=== PATIENT | female | born 1955 | race Caucasian/White ===

== ENCOUNTER 2025-07-16 07:32 | Outpatient (OUT) | payer MEDICARE, SELFPAY ==
--- OUTSIDE RECORDS SUMMARY | 2025-07-04 10:30 | XMS_ITS | Encounter Summary ---
Author Organization [facility] Address [address] [place] [address] Care Team Providers Care Radiologic Technologist Mammogram Name Role Phone Mercedez Savage GRADY Unavailable Adarsh Hernandez MD Unavailable [phone] Radha Perez LPN Unavailable Adarsh Hernandez MD Primary Care Provider [phone] Reason for Referral * Imaging (Routine) - Pending Review Specialty Diagnoses / Procedures Referred By Contac t Referred To Contact Radiology Diagnoses Benign essential hypertension Atherosclerosis of [place] coronary artery of [place] heart without angina pectoris Precordial chest pain Palpitation Peripheral edema Procedures Holter monitor Adarsh Hernandez MD [address] [address] Phone: tel: fax: [facility] [address] [place] [address] Phone: tel: fax: Referral ID Status Reason Start Date Expiration Date V isits Requested Visits Authorized [id number] Pending Review 07/04/2025 12/31/2025 1 1 * Imaging (Routine) - Pending Review Specialty Diagnoses / Procedures Referred By Contac t Referred To Contact Radiology Diagnoses Benign essential hypertension Atherosclerosis of [place] coronary artery of [place] heart without angina pectoris Precordial chest pain Palpitation Peripheral edema Procedures Echocardiogram 2D complete Adarsh Hernandez MD [address] [address] Phone: tel: fax: [facility] [address] [place] [address] Phone: tel: fax: Referral ID Status Reason Start Date Expiration Date Visits Requested Visits Authorized [id number] Pending Review Perform Procedure 07/04/2025 12/31/2025 1 1 Reason for Visit * Reason Comments Hypertension Hyperlipidemia Diabetes Encounter Details Date Type Department Care Team (Late st Contact Info) Description 07/04/2025 10:30 AM EDT Office Visit [facility] 112 [facility] [address] [place] [address] Adarsh Hernandez MD 112 [facility] [address] [place] [address] (Fax) Benign essential hypertension (Primary Dx); Mixed hyperlipidemia; Type 2 diabetes mellitus with other diabetic kidney complication (HCC); Type 2 diabetes mellitus with hyperglycemia, without long-term current use of insulin (HCC); Polypharmacy; Non morbid obesity due to excess calories; Atherosclerosis of [place] coronary artery of [place] heart without angina pectoris; Precordial chest pain; Palpitation; Peripheral edema; Cardiovascular event risk Social History Tobacco Use Types Packs/Day Years Used Date Smoking Tobacco: Former Cigarettes Smokeless Tobacco: Former Tobacco Cessation:Counseling Given: Yes Comments:Last smoked : >10 years ago Alcohol Use Standard Drinks/Week Comments Not Currently 0 (1 standard drink = 0.6 oz pur e alcohol) B1300 Health Literacy Answer Date Recor ded How often do you need to hav e someone help you when you read instructions, pamphlets, or other written material from your doctor or pharmacy? Rarely 06/27/2024 Humiliation, Afraid, Rape, and Kick questionnair e Answer Date Recorded Within the last year, have y ou been afraid of your partner or ex-partner? No 06/27/2024 Within the last year, have y ou been humiliated or emotionally abused in other ways by your partner or ex-partner? No Within the last year, have y ou been kicked, hit, slapped, or otherwise physically hurt by your partner or ex-partner? No 06/27/2024 Within the last year, have y ou been raped or forced to have any kind of sexual activity by your partner or ex-partner? No 06/27/2024 Social Connection and Isolation Panel Answer Date Recorded In a typical week, how many times do you talk on the phone with family, friends, or neighbors? More than three times a week 06/27/2024 How often do you get togethe r with friends or relatives? More than three times a week 06/27/2024 How often do you attend chur or caodaism services? More than 4 times per year 06/27/2024 Do you belong to any clubs o r organizations such as rastafarian groups, unions, fraternal or athletic groups, or school groups? Yes 06/27/2024 How often do you attend meet ings of the clubs or organizations you belong to? More than 4 times per year 06/27/2024 Are you , , di vorced, , never , or living with a partner? 06/27/2024 AUDIT-C Answer Date Recorded Q1: How often do you have a drink containing alcohol? Never 06/27/2024 Q2: How many drinks containi ng alcohol do you have on a typical day when you are drinking? Patient does not drink Q3: How often do you have si x or more drinks on one occasion? Never 06/27/2024 Overall Financial Resource Strain (CARDIA) Answe r Date Recorded How hard is it for you to pa y for the very basics like food, housing, medical care, and heating? Not hard at all 06/27/2024 PHQ-2 Answer Date Recorded Patient Health Questionnaire-2 Score 1 07/04/2025 [facility] [place] [facility] - Occupational Stress Questionnaire Answer Date Recorded Do you feel stress - tense, restless, nervous, or anxious, or unable to sleep at night because your mind is troubled all the time - these days? To some extent 06/27/2024 Exercise Vital Sign Answer Date Recorde d On average, how many days pe r week do you engage in moderate to strenuous exercise (like a brisk walk)? 3 days 06/27/2024 On average, how many minutes do you engage in exercise at this level? 20 min 06/27/2024 Hunger Vital Sign Answer Date Recorded Within the past 12 months, y ou worried that your food would run out before you got the money to buy more. Never true 06/27/20 24 Within the past 12 months, t he food you bought just didn't last and you didn't have money to get more. Never true 06/27/2024 PRAPARE - Transportation Answer Date Re corded In the past 12 months, has l ack of transportation kept you from medical appointments or from getting medications? No 06/04 In the past 12 months, has l ack of transportation kept you from meetings, work, or from getting things needed for daily living? No 06/27/2024 Housing Stability Vital Sign Answer Kiet e Recorded In the last 12 months, was t here a time when you were not able to pay the mortgage or rent on time? No 06/27/2023 In the last 12 months, how many places have you lived? 1 06/27/2023 In the last 12 months, was t here a time when you did not have a steady place to sleep or slept in a care home (including now)? No 06/27/2023 Housing Stability Vital Sign Answer Kiet e Recorded In the last 12 months, was t here a time when you were not able to pay the mortgage or rent on time? No 06/27/2024 In the past 12 months, how m any times have you moved where you were living? 0 06/27/2024 At any time in the past 12 m [facility], were you homeless or living in a care home (including now)? No 06/27/2024 Education Answer Date Recorded What is the highest level of school you have completed or the highest degree you have received? High school graduate 05/16/2023 Comments No Sex and Gender Information Value Date Recorded Sex Assigned at Not on file Legal Sex Female 7:07 PM EDT Gender Identity Not on file Sexual Orientation Not on file Occupation Industry Job Start Date Job End Date Retired Not on file Not on file Not on file Retired Not on file Not on file Not on file documented as of this encounter Last Filed Vital Signs Vital Sign Reading Time Taken Comments Blood Pressure 128/78 07/04/2025 10:33 AM EDT Pulse 87 07/04/2025 10:33 AM EDT Temperature - - Respiratory Rate - - Oxygen Saturation 94% 07/04/2025 10:33 AM EDT Inhaled Oxygen Concentration - - Weight 85.3 kg (188 lb) 07/04/2025 10:33 AM EDT Height 165.1 cm (5' 5 ) 07/04/2025 10:33 AM EDT Body Mass Index 31.28 07/04/2025 10:33 AM EDT documented in this encounter Functional Status * Over the past 2 weeks, how often have you been bothered by any of the following problems? Question Answer Date of Assessment Author Little interest or pleasure in doing things Not at all 07/04/2025 10:29 AM EDT Sita January, M A Feeling down, depressed, or hopeless Several days 07/04/2025 10:29 AM EDT Sita January, M A Patient Health Questionnaire -2 Score 1 07/04/2025 10:29 AM EDT Sita January, M A documented as of this encounter Progress Notes * Adarsh Hernandez MD - 07/04/2025 10:30 AM EDT Images from the original note were not included. Patient ID: Gin Contreras is a 69 y.o. female who presents for: Hypertension Patient is here for follow-up of elevated blood pressure. She is exercising and is adherent to a low-salt diet. Blood pressure is well controlled at home. Cardiac symptoms: chest pain and FINCH, Lightheadedness. Patient denies dyspnea, But admits to developing intermittent palpitations. When he has palpitations occur she does get precordial chest pain / pressure. These have not sustain themselves.. Cardiovascular risk factors: advanced age (older than 55 for men, 65 for women), diabetes mellitus, dyslipidemia, hypertension, microalbuminuria, obesity (BMI >= 30 kg/m2), and sedentary lifestyle.Use of agents associated with hypertension: thyroid hormones. History of target organ damage: chronic kidney disease. Hyperlipidemia Pt who presents for follow-up of dyslipidemia. A repeat fasting lipid profile was done. The patientdoes not use medications that may worsen dyslipidemias (corticosteroids, progestins, anabolic steroids, diuretics, amiodarone, cyclosporine, olanzapine). She does use beta-blockers Exercise: three times a week. Diabetes Mellitus Patient presents for follow up of diabetes. Current symptoms include: none. Symptoms have stabilized. Patient denies increased appetite, paresthesia of the feet, polydipsia, polyuria, and visual disturbances. Evaluation to date has included: fasting blood sugar, fasting lipid panel, hemoglobin A1C,and microalbuminuria. Review of Systems Constitutional: Negative for activity change and fatigue. Respiratory: Negative for cough, shortness of breath and wheezing. Cardiovascular: Positive for chest pain and palpitations. Negative for leg swelling. Neurological: Positive for light-headedness and headaches. Objective The patient is pleasant and in no acute distress. The neck is supple and trachea is midline. No masses are appreciated. The heart is iregular rate and rhythm, currently appears to be trigeminy, without S3, S4. No murmur. The patient has normal respiratory pattern. The breath sounds are Diffusely decreased but symmetrical without evidence of rhonchi or rales. No wheezing. The skin is warm and dry. The lower extremities have trace edema. The patient has good eye contact and speech is clear. Appropriate affect. 07/04/2025 10:33 AM 05/14/2025 9:56 AM 05/14/2025 9:30 AM 04/04/2025 10:25 AM Vitals BMI 31.28 kg/m2 31.28 kg/m2 BSA (m2) 1.98 m2 1.98 m2 Systolic 128 120 Diastolic 78 68 Heart Rate 87 110 107 71 SpO2 94 % 98 % 93 % 95 % Height (in) 5' 5 5' 5 Weight (lb) 188 188 Visit Report Report Report Report Report Allergies Allergen Reactions Codeine Hives and Itching Other Reaction(s): red bumps, itching Pioglitazone Nausea Only Other Reaction(s): Nausea Oxycodone Rash Other Reaction(s): Rash Current Outpatient Medications on File Prior to Visit Medication Sig Dispense Refill albuterol (2.5 MG/3ML) 0.083% nebulizer solution Take 3 mL (2.5 mg) by nebulization every 6 (six) hours if needed for shortness of breath or wheezing 300 mL 0 ASPIRIN 81 PO Take 1 tablet by mouth in the morning. uphsyqwdum-kdpepqlvsnyxl-opaamkfr 50-325-40 MG tablet Take 1 tablet by mouth every 4 (four) hours if needed for migraine Use no more than 4/day 10 tablet 0 cholecalciferol (Vitamin D-3) 125 MCG (5000 UT) tablet Take 5,000 Units by mouth Daily clobetasol (Temovate) 0.05 % external solution Apply topically in the morning and before bedtime. 50 mL 0 Continuous Blood Gluc Poured Pipe Maker (FreeStyle Rory 2 [place]) device Continuous Glucose Sensor (FreeStyle Rory 2 Sensor) [facility] 1 each on the skin every 14 (fourteen) days USE DIRECTED to test BLOOD SUGAR; change EVERY 2 (TWO) weeks 6 each 3 DULoxetine (Cymbalta) [address] capsule Take 1 capsule (30 mg) by mouth Daily for 7 days Do not crush or chew. 7 capsule 0 gabapentin (Neurontin) 100 MG capsule Titrate from 1 to 4 capsules three times daily as needed for pain 100 capsule 0 levothyroxine (Synthroid, Levoxyl) 75 MCG tablet Take 0.5 tablets (37.5 mcg) by mouth in the morning and 0.5 tablets (37.5 mcg) in the evening. Take before meals. 90 tablet 1 liothyronine (Cytomel) 5 MCG tablet Take 1.5 tablet in AM and 1.5 tablet in PM on an empty stomach.NICKY; Sigma or Greenstone brands only (Patient taking differently: Take 1.5 tablet in AM and 1 tablet in PM on an empty stomach. NICKY; Sigma or Greenstone brands only) 270 tablet 1 Multiple Vitamins-Minerals (Multivitamin Adults 50+) tablet Take 1 tablet by mouth Daily Nebulizers (Compressor/Nebulizer) mis Use 4 times per day and PRN SOB/wheezing 1 each 0 omeprazole (PriLOSEC) [address] capsule Take 1 capsule (20 mg) by mouth in the morning. Take before meals. 90 capsule 1 [DISCONTINUED] atorvastatin (Lipitor) 40 MG tablet Take 1 tablet (40 mg) by mouth at bedtime 90 tablet 0 [DISCONTINUED] dapagliflozin (Farxiga) 10 MG Take 1 tablet (10 mg) by mouth Daily 90 tablet 0 [DISCONTINUED] DULoxetine (Cymbalta) [address] capsule Take 1 capsule (30 mg) by mouth Daily Do not crush or chew. 90 capsule 1 [DISCONTINUED] glipiZIDE (Glucotrol) 10 MG tablet Take 1.5 tablet in AM and 0.5 in PM 180 tablet 0 [DISCONTINUED] losartan (Cozaar) 100 MG tablet Take 1 tablet (100 mg) by mouth 1 (one) time each day at the same time 90 tablet 0 [DISCONTINUED] metFORMIN (Glucophage) 1000 MG tablet Take 1 tablet (1,000 mg) by mouth in the morning and 1 tablet (1,000 mg) in the evening. Take with meals. 180 tablet 0 [DISCONTINUED] metoprolol succinate XL (Toprol-XL) 25 MG 24 hr tablet Take 1 tablet (25 mg) by mouth Daily 90 tablet 0 spironolactone (Aldactone) 25 MG tablet Take 1 tablet (25 mg) by mouth Daily (Patient not taking: Reported on 07/04/2025) 30 tablet 0 [DISCONTINUED] furosemide (Lasix) 20 MG tablet Take 1 tablet (20 mg) by mouth Daily for 7 days 7 tablet 0 [DISCONTINUED] predniSONE (Deltasone) 10 MG tablet Every 2 day tapering dose; 5,5,4,4,3,3,2,2,1,1,0.5,0.5 31 tablet 0 No current facility-administered medications on file prior to visit. 1. Benign essential hypertension (Primary) Chronic problem, stable, to goal, renew current treatment. - losartan (Cozaar) 100 MG tablet; Take 1 tablet (100 mg) by mouth 1 (one) time each day at the same time Dispense: 90 tablet; Refill: 0 - metoprolol succinate XL (Toprol-XL) 25 MG 24 hr tablet; Take 1 tablet (25 mg) by mouth Daily Dispense: 90 tablet; Refill: 0 - Echocardiogram 2D complete; Future - Holter monitor; Future - Holter monitor 2. Mixed hyperlipidemia Chronic problem, unstable with elevated triglycerides in the face of treatment. With the complexityof today's visit we discussed continuing her current treatment in focusing on her other issues. Diddiscuss the importance of decreasing her carbohydrate load. - atorvastatin (Lipitor) 40 MG tablet; Take 1 tablet (40 mg) by mouth at bedtime Dispense: 90 tablet; Refill: 0 3. Type 2 diabetes mellitus with other diabetic kidney complication (HCC) I discussed with her that she is now maxed out on 3 medications. We are getting close to considering insulin. She has not been to goal in over a year. We have mutually agreed that she is going to keep an accurate diet log for a proximally 2 weeks and come back into the office with it. She is where she is exercising and eating very healthy. If this is indeed the case she is almost certainly becomeinsulin dependent. - dapagliflozin (Farxiga) 10 MG; Take 1 tablet (10 mg) by mouth Daily Dispense: 90 tablet; Refill: 0 - glipiZIDE (Glucotrol) 10 MG tablet; Take 1.5 tablet in AM and 0.5 in PM Dispense: 180 tablet; Refill: 0 - metFORMIN (Glucophage) 1000 MG tablet; Take 1 tablet (1,000 mg) by mouth in the morning and 1 tablet (1,000 mg) in the evening. Take with meals. Dispense: 180 tablet; Refill: 0 - Hemoglobin A1c; Future - Hemoglobin A1c 4. Type 2 diabetes mellitus with hyperglycemia, without long-term current use of insulin (HCC) Ref Range & Units 1 mo ago (06/05/25) 3 mo ago (03/20/25) 9 mo ago (10/05/24) 1 yr ago (03/28/24) 1 yr ago (12/29/23) 2 yr ago (06/28/23) 2 yr ago (12/23/22) Hemoglobin A1C <5.7 % 8.2 High 7.1 High CM 7.2 High R, CM 7.0 High R 5. Polypharmacy Chronic problem The patient meets the criteria for polypharmacy; 5 or more prescriptions or multi-morbidity definedas 5 or more diagnoses. Polypharmacy can significantly increase the risk of adverse drug events and negatively impact adherence. Consideration of factors such as clinician agreement, patient perspective, and de-prescribing,as appropriate can improve patient outcomes while simplifying care. This requires longitudinal monitoring as there is at least a moderate risk of morbidity and requires at least a moderate degree of evaluation and management. 6. Non morbid obesity due to excess calories Her weight is stable. 7. Atherosclerosis of [place] coronary artery of [place] heart without angina pectoris Chronic problem with questionable stability. She is having precordial chest pain. It seems to be associated with her palpitations. After discussion we have mutually agreed to proceed with Holter monitoring and echocardiogram to get a definition of both the palpitations and her cardiac anatomy. She may ultimately need stress test. I am more suspicious that she may have some valvular disease or some myocardiopathy. - metoprolol succinate XL (Toprol-XL) 25 MG 24 hr tablet; Take 1 tablet (25 mg) by mouth Daily Dispense: 90 tablet; Refill: 0 - Echocardiogram 2D complete; Future - Holter monitor; Future - Holter monitor 8. Precordial chest pain As above - Echocardiogram 2D complete; Future - Holter monitor; Future - Holter monitor 9. Palpitation As above - Echocardiogram 2D complete; Future - Holter monitor; Future - Holter monitor 10. Peripheral edema As above - Echocardiogram 2D complete; Future - Holter monitor; Future - Holter monitor 11. Cardiovascular event risk Patient continues with the elevated cardiovascular event risk. Please Note: Portions of this chart may have been created using voice recognition software. Occasionally a wrong-word or sound-like substitutions may have occurred due to inherent limitations of the voice recognition software. Please read the chart carefully and recognize, using context, where the substitutions may have occurred. documented in this encounter Plan of Treatment Upcoming Encounters Date Type Department Care Team (Late st Contact Info) Description 07/18/2025 10:00 AM EDT [facility] [address] [address] Adarsh Hernandez MD [address] [place] [id number] 07/23/2025 11:30 AM EDT Office Visit [facility] [address] [place] [phone] Adarsh Hernandez MD [address] [place] [id number] Scheduled Orders Name Type Priority Associated Diagnoses Orde r Schedule Hemoglobin A1c Lab Routine Type 2 diabetes mellitus with other diabetic kidney complication (HCC) Expected: 10/04/2025 (Approximate), Expires: 07/04/2026 Echocardiogram 2D complete Echocardiography Routine Benign essential hypertension Atherosclerosis of [place] coronary artery of [place] heart without angina pectoris Precordial chest pain Palpitation Peripheral edema Expected: 07/04/2025 (Approximate), Expires: 07/04/2027 Holter monitor Imaging Routine Benign essential hypertension Atherosclerosis of [place] coronary artery of [place] heart without angina pectoris Precordial chest pain Palpitation Peripheral edema Expected: 07/04/2025 (Approximate), Expires: 07/04/2026 documented as of this encounter Visit Diagnoses Diagnosis Benign essential hypertension- Primary Essential hypertension, benign Mixed hyperlipidemia Type 2 diabetes mellitus with other diabetic kidney complication (HCC) Type 2 diabetes mellitus with hyperglycemia, without long-term current use of insulin (HCC) Polypharmacy Issue of repeat prescriptions Non morbid obesity due to excess calories Atherosclerosis of [place] coronary artery of [place] heart without angina pectoris Precordial chest pain Precordial pain Palpitation Palpitations Peripheral edema Edema Cardiovascular event risk documented in this encounter Additional Health Concerns Assessment Noted Time PHQ-9 Depression Total Score: 5 12/25/19 10:00 AM EDT A fall risk assessment has been complete d for the patient 06/27/2024 9:39 AM EDT documented as of this encounter Care Teams Radiologic Technologist Mammogram Relationship Specialty Start Date End Date Adarsh Hernandez MD [address] [facility] [address] [place] [address] PCP - Tricia MOREJON 10/03/24 Adarsh Hernandez MD [address] [facility] [address] [place] [address] PCP - General Family Medicine 04/04/25 Mercedez Savage OD [address] [place] [address] Referring Physician Optometry 12/22/23 Radha Perez LPN [address] [place] [address] 01/01/25 documented as of this encounter
--- OUTSIDE RECORDS SUMMARY | 2025-07-16 07:38 | XMS_ITS | Encounter Summary ---
Author Organization [facility] Address [address] [place] [address] Care Team Providers Care Felt Hanger Name Role Phone Adarsh Hernandez MD Unavailable [phone] Adarsh Hernandez MD Primary Care Provider [phone] Mercedez Savage OD Unavailable Pattie Todd [employer] Unavailable Adarsh Hernandez MD Unavailable [phone] Chris Radha [employer] Unavailable Adarsh Hernandez MD Primary Care Provider [phone] Encounter Details Date Type Department Care Team (Late st Contact Info) Description 02/07/2023 Abstract [facility] [address] [place] [address] Adarsh Hernandez MD 112 [facility] [address] [place] [address] (Fax) Social History Tobacco Use Types Packs/Day Years Used Date Smoking Tobacco: Former Cigarettes Smokeless Tobacco: Former Comments:Last smoked : >10 y ears ago Alcohol Use Standard Drinks/Week Comments Not Currently 0 (1 standard drink = 0.6 oz pur e alcohol) Education Answer Date Recorded What is the [...] on file documented as of this encounter Plan of Treatment Upcoming Encounters Date Type Department Care Team (Late st Contact Info) Description 07/18/2025 10:00 AM EDT Office Visit [facility] [address] [place] [address] Adarsh Hernandez MD [address] [place] [address] (Fax) 07/23/2025 11:30 AM EDT Office Visit [facility] [address] [place] [address] Adarsh Hernandez MD [address] [place] [address] (Fax) documented as of this encounter Visit Diagnoses Not on filedocumented in this encounter Care Teams Felt Hanger Relationship Specialty Start Date End Date Adarsh Hernandez MD [address] [place] [address] (Fax) PCP - Devoted 10/03/20 10/02/24 Adarsh Hernandez MD [address] [place] [address] (Fax) PCP - General Family Medicine 03/03/23 04/03/25 Adarsh Hernandez MD [address] [place] [address] (Fax) PCP - Tricia MOREJON 10/03/24 Adarsh Hernandez MD [address] [place] [address] (Fax) PCP - General Family Medicine 04/04/25 Mercedez Savage OD [address] [place] [address] [place] [address] Referring Physician Optometry 12/22/23 Pattie Todd LPN [address] [place] [address] Licensed Practical Nurse [employer] 11/12/24 Radha Perez LPN [address] [facility] [address] [place] [address] 01/01/25 documented as of this encounter
--- OUTSIDE RECORDS SUMMARY | 2025-07-16 07:38 | XMS_ITS | Encounter Summary ---
Author Organization [facility] Address [address] [place] [address] Care Team Providers Care Paedodontist Name Role Phone Adarsh Hernandez MD Primary Care Provider + [phone] Mercedez Savage OD Unavailable Adarsh Hernandez MD Unavailable [phone] PerezRadha CLINICAL ADMINISTRATOR Unavailable Adarsh Hernandez MD Primary Care Provider + [phone] Encounter Details Date Type Department Care Team (Late st Contact Info) Description 01/19/2025 Results Follow-Up [facility] [place] [address] Family Medicine 112 [facility] 100 [place] [address] Adarsh Hernandez MD 112 [facility] 100 [place] [address] (Fax) XR LUMBAR SPINE AP/LAT/FLEX/EXT/OBL IQUES Social History Tobacco Use Types Packs/Day Years [...] 06/27/2024 How often do you attend chur ch or congregation services? More than 4 times per year 06/27/2024 Do you belong to any clubs o r organizations such as samaritan groups, unions, fraternal or athletic groups, or [...] Answer Date Recorded Patient Health Questionnaire-2 Score 0 01/17/2025 [facility] of Occupat ional Health - Occupational Stress [...] place to sleep or slept in a mcfp (including now)? No 06/27/2023 Housing Stability Vital Sign Answer Kiet e Recorded In the last 12 months, was t here a time when you were not able to pay the mortgage or rent on time? No 06/27/2024 In the past 12 months, how m any times have you moved where you were living? 0 06/27/2024 At any time in the past 12 m [facility], were you homeless or living in a mcfp (including now)? No 06/27/2024 Education Answer Date [...] on file documented as of this encounter Miscellaneous Notes * Telephone Encounter - Adarsh Hernandez MD - 01/19/2025 9:00 AM EDT Notify her I did review both the reports in the x-rays themselves. As far as the ankle it looks fairly healthy. There is some arthritis around the midfoot. The ankle joint itself looks good and there is no evidence of acute fracture. Continued pain here would require referral to Podiatry for 2nd opinion. As far as her spine she pretty much has severe osteoarthritis throughout. The joint spaces are actually fairly well-maintained. Her spine is very stiff if not rigid. The 1st step here would be physical therapy for mobilization and strengthening evaluation. As another note her aorta and arteries in her legs are heavily calcified. Please ask about signs orsymptoms of claudication so we are sure we are not missing significant vascular disease it may needattention. documented in this encounter Plan of Treatment Upcoming Encounters Date Type Department Care Team (Late st Contact Info) Description 07/18/2025 10:00 AM EDT Office Visit [facility] [address] [place] [address] Adarsh Hernandez MD [address] [place] [address] 07/23/2025 11:30 AM EDT Office Visit [facility] [address] [place] [address] Adarsh Hernandez MD [address] [place] [address] documented as of this encounter Visit Diagnoses Not on filedocumented in this encounter Additional Health Concerns Assessment Noted Time PHQ-9 Depression Total Score: 5 12/25/19 10:00 AM EDT A fall risk assessment has been complete d for the patient 06/27/2024 9:39 AM EDT documented as of this encounter Care Teams Paedodontist Relationship Specialty Start Date End Date Adarsh Hernandez MD PCP - General Family Medicine 03/03/23 04/03/25 Adarsh Hernandez MD [address] [place] [address] PCP - Tricia MOREJON 10/03/24 Adarsh Hernandez MD [address] [place] [address] PCP - General Family Medicine 04/04/25 Mercedez Savage OD [address] [place] [address] Referring Physician Optometry 12/22/23 Radha Perez LPN [address] [place] [address] 01/01/25 documented as of this encounter
--- OUTSIDE RECORDS SUMMARY | 2025-07-16 07:38 | XMS_ITS | Encounter Summary ---
Author Organization [facility] Address [address] [place] [address] Care Team Providers Care Property Inspector Name Role Phone Mercedez Savage GRADY Unavailable Adarsh Hernandez MD Unavailable [phone] Jeff Perezika JUAN Unavailable Adarsh Hernandez MD Primary Care Provider [phone] Encounter Details Date Type Department Care Team (Latest Contact Info) Description 07/04/2025 Travel Social History Tobacco Use Types Packs/Day Years [...] often do you attend chur ch or tenriism services? More than 4 times per year 06/27/2024 Do you belong to any clubs o r organizations such as sabianist groups, unions, fraternal or athletic groups, or [...] Recorded Patient Health Questionnaire-2 Score 1 07/04/2025 [facility] - Occupational Stress Questionnaire Answer Date Recorded [...] place to sleep or slept in a halfway (including now)? No 06/27/2023 Housing Stability Vital Sign Answer Kiet e Recorded In the last 12 months, was t here a time when you were not able to pay the mortgage or rent on time? No 06/27/2024 In the past 12 months, how m any times have you moved where you were living? 0 06/27/2024 At any time in the past 12 m [facility], were you homeless or living in a halfway (including now)? No 06/27/2024 Education Answer Date [...] on file documented as of this encounter Functional Status * Over the past 2 weeks, how often have you been bothered by any of the following problems? Question Answer Date of Assessment Author Little interest or pleasure in doing things Not at all 07/04/2025 10:29 AM Leigh Lennon M A Feeling down, depressed, or hopeless Several days 07/04/2025 10:29 AM EDT Leigh Buckner M A Patient Health Questionnaire -2 Score 1 07/04/2025 10:29 AM EDT Leigh Buckner M A documented as of this encounter Plan of Treatment Upcoming Encounters Date Type Department Care Team (Late st Contact Info) Description 07/18/2025 10:00 AM EDT Office Visit [facility] [place] [address] Family [address] [facility] 100 [place] [address] Adarsh Hernandez MD [address] [place] [address] (Fax) 07/23/2025 11:30 AM EDT Office Visit [facility] [place] [facility] Family Medicine [address] [facility] 100 [place] [address] Adarsh Hernandez MD [address] [facility] [address] [place] [address] (Fax) documented as of this encounter Visit Diagnoses Not on filedocumented in this encounter Additional Health Concerns Assessment Noted Time PHQ-9 Depression Total Score: 5 12/25/19 25 10:00 AM EDT A fall risk assessment has been complete d for the patient 06/27/2024 9:39 AM EDT documented as of this encounter Care Teams Property Inspector Relationship Specialty Start Date End Date Adarsh Hernandez MD 112 [facility] 100 [place] [address] (Fax) PCP - Tricia MOREJON 10/03/24 Adarsh Hernandez MD 112 [facility] [address] [place] [address] (Fax) PCP - General Family Medicine 04/04/25 Mercedez Savage OD [address] [place] [address] Referring Physician Optometry 12/22/23 Radha Perez LPN [address] [place] [address] 01/01/25 documented as of this encounter
--- OUTSIDE RECORDS SUMMARY | 2025-07-16 07:38 | XMS_ITS | Encounter Summary ---
Author Organization [facility] Address [address] [place] [address] Care Team Providers Care Blue Crabber Name Role Phone Mercedez Savage GRADY Unavailable Adarsh Hernandez MD Unavailable [phone] Radha Perez LPN Unavailable Adarsh Hernandez MD Primary Care Provider [phone] Encounter Details Date Type Department Care Team (Late st Contact Info) Description 07/10/2025 Patient Outreach [facility] [address] [place] [address] Radha Perez LPN [address] [facility] 110 [place] [address] Social History Tobacco Use Types Packs/Day Years [...] How often do you attend chur or christianity services? More than 4 times per year 06/27/2024 Do you belong to any clubs o r organizations such as latter-day groups, unions, fraternal or athletic groups, or [...] Recorded Patient Health Questionnaire-2 Score 1 07/04/2025 [facility] [place] of Occupat ional Health - Occupational Stress [...] place to sleep or slept in a chcf (including now)? No 06/27/2023 Housing Stability Vital Sign Answer Kiet e Recorded In the last 12 months, was t here a time when you were not able to pay the mortgage or rent on time? No 06/27/2024 In the past 12 months, how m any times have you moved where you were living? 0 06/27/2024 At any time in the past 12 m [facility], were you homeless or living in a chcf (including now)? No 06/27/2024 Education Answer Date [...] on file documented as of this encounter Progress Notes * Radha Perez LPN - 07/10/2025 3:23 PM EDT Call placed to pt to see if she has scheduled ECHO and holter monitor. No answer and unable to leave voicemail. I talk to pt about ECHO and Holter monitor as well in different encounter. She states they never called her to set up this appt yet. I give pt number to centralized scheduling and tell her to call them to get this scheduled. I let her know she may have missed their messages or they justhave not gotten around to calling her yet. Pt is going to call them. <July 11, 2025, 16:33 - Radha Perez LPN> Pt calls back and lets hand sign writer know that she called centralized scheduling and they have not gotten the approval from insurance yet. She states they said when that comes through they will call pt to schedule. documented in this encounter Plan of Treatment Upcoming Encounters Date Type Department Care Team (Late st Contact Info) Description 07/18/2025 10:00 AM EDT Office Visit [facility] [address] [place] [phone] Adarsh Hernandez MD [address] [address] 07/23/2025 11:30 AM EDT Office Visit [facility] Family [address] [address] Adarsh Hernandez MD [address] [address] documented as of this encounter Visit Diagnoses Diagnosis Type 2 diabetes mellitus with other diabetic kidney complication (HCC)- Primary Benign essential hypertension Essential hypertension, benign documented in this encounter Additional Health Concerns Assessment Noted Time PHQ-9 Depression Total Score: 5 12/25/19 10:00 AM EDT A fall risk assessment has been complete d for the patient 06/27/2024 9:39 AM EDT documented as of this encounter Care Teams Blue Crabber Relationship Specialty Start Date End Date Adarsh Hernandez MD [address] [place] [address] PCP - Tricia MOREJON 10/03/24 Adarsh Hernandez MD [address] [place] [address] PCP - General Family Medicine 04/04/25 Mercedez Savage OD [address] [place] [address] Referring Physician Optometry 12/22/23 Radha Perez LPN [address] [place] [address] 01/01/25 documented as of this encounter
--- OUTSIDE RECORDS SUMMARY | 2025-07-16 07:38 | XMS_ITS | Encounter Summary ---
Author Organization [facility] Address [address] [place] [address] Care Team Providers Care Service Station Attendant Name Role Phone Mercedez Savage OD Unavailable Adarsh Hernandez MD Unavailable [phone] Radha Perez LPN Unavailable Adarsh Hernandez MD Primary Care Provider [phone] Encounter Details Date Type Department Care Team (Late st Contact Info) Description 07/04/2025 Bamboo flowsheet [facility] [place] 100 Family Medicine 112 [facility] 100 [place] [address] Adarsh Hernandez MD 112 [facility] 100 [place] [address] (Fax) Social History Tobacco Use Types Packs/Day [...] How often do you attend chur or anabaptism services? More than 4 times per year 06/27/2024 Do you belong to any clubs o r organizations such as catholic groups, unions, fraternal or athletic groups, or [...] Recorded Patient Health Questionnaire-2 Score 1 07/04/2025 [facility] [place] of Occupat ional Health - Occupational Stress [...] place to sleep or slept in a usp (including now)? No 06/27/2023 Housing Stability Vital Sign Answer Kiet e Recorded In the last 12 months, was t here a time when you were not able to pay the mortgage or rent on time? No 06/27/2024 In the past 12 months, how m any times have you moved where you were living? 0 06/27/2024 At any time in the past 12 m [facility], were you homeless or living in a usp (including now)? No 06/27/2024 Education Answer Date [...] Upcoming Encounters Date Type Department Care Team (Kyle birmingham Contact Info) Description 07/18/2025 10:00 AM EDT Office Visit [facility] [place] [address] Family Medicine [address] [place] [address] Adarsh Hernandez MD [address] [place] [address] (Fax) 07/23/2025 11:30 AM EDT Office Visit [facility] [place] [address] Family Medicine [address] [place] [address] Adarsh Hernandez MD [address] [facility] [address] [place] [address] (Fax) documented as of this encounter Visit Diagnoses Not on filedocumented in this encounter Additional Health Concerns Assessment Noted Time PHQ-9 Depression Total Score: 5 12/25/19 10:00 AM EDT A fall risk assessment has been complete d for the patient 06/27/2024 9:39 AM EDT documented as of this encounter Care Teams Service Station Attendant Relationship Specialty Start Date End Date Adarsh Hernandez MD 112 [facility] 100 [place] [address] (Fax) PCP - Tricia MOREJON 10/03/24 Adarsh Hernandez MD 112 [facility] 100 [place] [address] (Fax) PCP - General Family Medicine 04/04/25 Mercedez Savage OD [address] [place] [address] Referring Physician Optometry 12/22/23 Radha Perez LPN [address] [place] [address] 01/01/25 documented as of this encounter
--- OUTSIDE RECORDS SUMMARY | 2025-07-16 07:38 | XMS_ITS | Encounter Summary ---
Author Organization [facility] Address [address] [place] [address] Care Team Providers Care Sling Operator Name Role Phone Adarsh Hernandez MD Unavailable [phone] Adarsh Hernandez MD Primary Care Provider [phone] Mercedez Savage OD Unavailable Pattie Todd INFORMATION SYSTEMS SPECIALIST Unavailable Adarsh Heranndez MD Unavailable [phone] Chris Radha INFORMATION SYSTEMS SPECIALIST Unavailable Adarsh Hernandez MD Primary Care Provider [phone] Encounter Details Date Type Department Care Team (Late st Contact Info) Description 08/01/2024 External Result Encounter [facility] External Department Unsolicited Provider, Generic External Data Social History Tobacco Use Types Packs/Day Years [...] How often do you attend chur or adventist services? More than 4 times per year 06/27/2024 Do you belong to any clubs o r organizations such as rastafari groups, unions, fraternal or athletic groups, or [...] Date Recorded Patient Health Questionnaire-2 Score 0 06/27/2024 [facility] [place] of Occupat ional Health - Occupational Stress [...] place to sleep or slept in a snf (including now)? No 06/27/2023 Housing Stability Vital Sign Answer Kiet e Recorded In the last 12 months, was t here a time when you were not able to pay the mortgage or rent on time? No 06/27/2024 In the past 12 months, how m any times have you moved where you were living? 0 06/27/2024 At any time in the past 12 m [facility], were you homeless or living in a snf (including now)? No 06/27/2024 Education Answer Date [...] AM EDT Office Visit [facility] [place] [facility] [address] [facility] [place] [address] Adarsh Hernandez MD 112 [facility] [place] [address] 07/23/2025 11:30 AM EDT Office Visit [facility] [place] [facility] [address] [facility] [address] [place] [address] Adarsh Hernandez MD 112 [place] [address] (Fax) documented as of this encounter Procedures Procedure Name Priority Date/Time Associated Diagnosis Comments BI MAMMOGRAM SCREENING TOMOSYNTHESIS BILATERAL 08/01/2024 3:39 PM EDT documented in this encounter Results * Bilateral screening mammogram with tomosynthesis (08/01/2024 3:39 PM EDT) Anatomical Region Laterality Modality Breast Bilateral Mammography 08/01/2024 3:39 PM EDT Impressions 08/01/2024 3:46 PM EDT NO MAMMOGRAPHIC EVIDENCE OF MALIGNANCY. ROUTINE FOLLOW-UP IS RECOMMENDED IN ONE YEAR. RESULT CODE: 2 Benign Findings(s) DENSITY CODE: 1 (<25% glandular) FOLLOW UP: 1YR The false-negative rate of mammography is approximately 10-percent. Management of a palpable abnormality must be based on clinical grounds. Patient was entered into a reminder system with a target due date for the next mammogram. Impression dictated by: Germaine Snow M.D.08/01/2024 3:44 PM Dictation Location: [facility] Transcribed By: [facility] 08/01/24 1544 Dictated By: Germaine Snow MD 08/01/24 1539 Signed By: <Electronically signed by MD Germaine Snow in OV> 08/01/24 1544 Narrative 08/01/2024 3:46 PM EDT [facility] Main [place] [address] [place] [address] Mammography Report Signed Patient: Gin Contreras MR#: [id number] : 1955 Acct:[id number] Age/Sex: 68 / F ADM Date: 08/01/24 Loc: [place] Room: [facility] Att[facility] Dr: Referral Self Copies to: Adarsh Hernandez MD SELF,REFERRAL Ordering Provider: SELF,REFERRAL Date of Service: 08/01/24 MM/MM screening mammo BI w/CAD: SCREENING CLINICAL DATA: Screening for malignancy. BILATERAL SCREENING MAMMOGRAMS - FULL FIELD DIGITAL WITH TOMOSYNTHESIS AND CAD Tomosynthesis craniocaudal and mediolateral oblique views of both breasts were obtained using low- dose digital technique. Comparison is made to prior studies from April 25, 2020 through July 21, 2023. This examination was reviewed with the aid of CAD. The breast parenchyma has been largely replaced by fat. Benign and vascular calcifications are visualized. There are no developing masses, typically malignant calcifications or architectural distortion. There has been no significant interval change. MM/MM screening mammo BI w/CAD Procedure Note Radiology, Radiologist, MD - 08/01/2024 [facility] Main [place] [address] [place], [place] [address] Mammography Report Signed Patient: Gin ContrerasMR#: [id number] : 1955cct:[id number] Age/Sex: 68 / FADM Date: 08/01/24 Loc: [place] Room:[facility] Att[facility] Dr: Referral Self Copies to: Adarsh Hernandez MD SELF,REFERRAL Ordering Provider: SELF,REFERRAL Date of Service: 08/01/24 MM/MM screening mammo BI w/CAD: SCREENING CLINICAL DATA: Screening for malignancy. BILATERAL SCREENING MAMMOGRAMS - FULL FIELD DIGITAL WITH TOMOSYNTHESIS ANDCAD Tomosynthesis craniocaudal and mediolateral oblique views of both breastswere obtained using low- dose digital technique. Comparison is made to prior studies from April through July 21, 2023. This examination was reviewed with the aid of CAD. The breast parenchyma has been largely replaced by fat. Benign andvascular calcifications are visualized. There are no developing masses, typically malignantcalcifications or architectural distortion. There has been no significant interval change. MM/MM screening mammo BI w/CAD IMPRESSION: NO MAMMOGRAPHIC EVIDENCE OF MALIGNANCY. ROUTINE FOLLOW-UP IS RECOMMENDED IN ONE YEAR. RESULT CODE: 2 Benign Findings(s) DENSITY CODE: 1 (<25% glandular) FOLLOW UP: 1YR The false-negative rate of mammography is approximately 10-percent. Management of a palpable abnormality must be based on clinical grounds. Patient was entered into a reminder system with a target due date for thenext mammogram. Impression dictated by: Germaine Snow M.D.08/01/2024 3:44 PM Dictation Location: [facility] Transcribed By: [facility] 08/01/24 1544 Dictated By: Germaine Snow MD 08/01/24 1539 Signed By: <Electronically signed by MD Germaine Snow in OV> 08/01/24 1544 us Generic External Data Provider IMG BI PROCEDURES Final Result documented in this encounter Visit Diagnoses Not on filedocumented in this encounter Additional Health Concerns Assessment Noted Time PHQ-9 Depression Total Score: 5 12/22/19 24 1:00 PM EDT A fall risk assessment has been complete d for the patient 06/27/2024 9:39 AM EDT documented as of this encounter Care Teams Sling Operator Relationship Specialty Start Date End Date Adarsh Hernandez MD [address] [address] PCP - Devoted 10/03/20 10/02/24 Adarsh Hernandez MD [address] [address] PCP - General Family Medicine 03/03/23 04/03/25 Adarsh Hernandez MD [address] [place] [address] PCP - Tricia MOREJON 10/03/24 Adarsh Hernandez MD [address] [place] [address] PCP - General Family Medicine 04/04/25 Mercedez Savage OD [address] [place] [address] Referring Physician Optometry 12/22/23 Pattie Todd LPN [address] [place] [address] Licensed Practical Nurse Collet Making Machine Operator 11/12/24 Radha Perez LPN [address] [place] [address] 01/01/25 documented as of this encounter
--- OUTSIDE RECORDS SUMMARY | 2025-07-16 07:38 | XMS_ITS | Encounter Summary ---
Author Organization [facility] Address [address] [place] [address] Care Team Providers Care Bath Mixer Name Role Phone Adarsh Hernandez MD Unavailable [phone] Adarsh Hernandez MD Primary Care Provider [phone] Mercedez Savage OD Unavailable Pattie Todd DRY KILN FEEDER Unavailable Adarsh Hernandez MD Unavailable [phone] Chris Radha DRY KILN FEEDER Unavailable Adarsh Hernandez MD Primary Care Provider [phone] Encounter Details Date Type Department Care Team (Late st Contact Info) Description 07/16/2024 Orders Only [facility] [address] [place] [id number] Unallocated, Noms Provider, [address] [place] [address] Social History Tobacco Use Types Packs/Day Years [...] How often do you attend chur or jain services? More than 4 times per year 06/27/2024 Do you belong to any clubs o r organizations such as confucianist groups, unions, fraternal or athletic groups, or [...] Recorded Patient Health Questionnaire-2 Score 0 06/27/2024 [facility] - Occupational Stress [...] place to sleep or slept in a nursing home (including now)? No 06/27/2023 Housing Stability [...] any time in the past 12 m [facility], were you homeless or living in a nursing home (including now)? No 06/27/2024 Education Answer [...] Visit [facility] 112 [facility] [address] [place] [address] Adarsh Hernandez MD 112 [facility] 100 [place] [address] (Fax) 07/23/2025 11:30 AM EDT Office Visit [facility] 112 [facility] 100 [place] [address] Adarsh Hernandez MD 112 [address] [place] [address] documented as of this encounter Procedures Procedure Name Priority Date/Time Associated Diagnosis Comments DIABETIC RETINOPATHY SCREENING - OU - BOTH EYES Routine 07/16/2024 4:02 PM EDT documented in this encounter Results * Diabetic Retinopathy Screening - OU - Both Eyes (07/16/2024 4:02 PM EDT) Anatomical Region Laterality Modality Head Other us Noms Provider Unallocated OPHTH PHOTOGRAPHY F inal Result documented in this encounter Visit Diagnoses Not on filedocumented in this encounter Additional Health Concerns Assessment Noted Time PHQ-9 Depression Total Score: 5 12/22/19 24 1:00 PM EDT A fall risk assessment has been complete d for the patient 06/27/2024 9:39 AM EDT documented as of this encounter Care Teams Bath Mixer Relationship Specialty Start Date End Date Adarsh Hernandez MD 112 [facility] [place] [address] (Fax) PCP - Devoted 10/03/20 10/02/24 Adarsh Hernandez MD [address] [address] [place] [address] PCP - General Family Medicine 03/03/23 04/03/25 Adarsh Hernandez MD [address] [place] [address] PCP - Tricia MOREJON 10/03/24 Adarsh Hernandez MD [address] [place] [address] PCP - General Family Medicine 04/04/25 Mercedez Savage OD [address] [facility] [place] [address] Referring Physician Optometry 12/22/23 Pattie Todd LPN [address] [place] [address] Licensed Practical Nurse Power Operator 11/12/24 Radha Perez LPN [address] [place] [address] 01/01/25 documented as of this encounter
--- OUTSIDE RECORDS SUMMARY | 2025-07-16 07:38 | XMS_ITS | Encounter Summary ---
Author Organization [facility] Address [address] [place] [address] Care Team Providers Care Motors And Controls Tester Name Role Phone Mercedez Savage GRADY Unavailable Adarsh Hernandez MD Unavailable [phone] Radha Perez LPN Unavailable Adarsh Hernandez MD Primary Care Provider [phone] Reason for Visit * Reason Onset Date Comments Care Coordination 07/11/2025 Encounter Details Date Type Department Care Team (Late st Contact Info) Description 07/11/[address]phone [facility] [address] [facility] 112 [facility] 100 [place] [address] Leigh Buckner MA Care Coordination Social History Tobacco Use Types Packs/Day Years [...] How often do you attend chur or evangelical services? More than 4 times per year 06/27/2024 Do you belong to any clubs o r organizations such as religion groups, unions, fraternal or athletic groups, or [...] Recorded Patient Health Questionnaire-2 Score 1 07/04/2025 [facility] - Occupational [...] place to sleep or slept in a jail (including now)? No 06/27/2023 Housing Stability Vital Sign Answer Kiet e Recorded In the last 12 months, was t here a time when you were not able to pay the mortgage or rent on time? No 06/27/2024 In the past 12 months, how m any times have you moved where you were living? 0 06/27/2024 At any time in the past 12 m [facility], were you homeless or living in a jail (including now)? No 06/27/2024 Education Answer Date [...] Progress Notes * Radha Perez LPN - 07/11/2025 4:13 PM EDT Call to pt to let pt know if she can get lab drawn tomorrow she should be able to keep appt. Pt states she is going to get this done tomorrow. I talk to pt about ECHO and Holter monitor as well. She states they never called her to set up this appt yet. I give pt number to centralized scheduling andtell her to call them to get this scheduled. I let her know she may have missed their messages or they just have not gotten around to calling her yet. Pt is going to call them. <July 11, 2025, 16:33 - Radha Perez LPN> Pt calls back and lets casualty underwriter know that she called centralized scheduling and they have not gotten the approval from insurance yet. She states they said when that comes through they will call pt to schedule. documented in this encounter Miscellaneous Notes * Telephone Encounter - Leigh Buckner MA - 07/11/2025 3:20 PM EDT Copied from CARY: Alphonse, this is Gin Contreras. My phone number is [phone] and I was supposed to have my blood draw on Tuesday for my thyroid exam on 2 weeks from now, and I went right past it because I thought it was another date instead of the . So if you can get back with you, appreciate it by. Please call and let her know if she can have these drawn tomorrow 6 hours after morning dose they should be back in time otherwise she may need to reschedule. documented in this encounter Plan of Treatment Upcoming Encounters Date Type Department Care Team (Late st Contact Info) Description 07/18/2025 10:00 AM EDT Office Visit [facility] 112 [facility] 100 [place] [address] Adarsh Hernandez MD 112 [facility] 100 [place] [address] (Fax) 07/23/2025 11:30 AM EDT Office Visit [facility] [address] [address] Adarsh Hernandez MD [address] [address] (Fax) Scheduled Orders Name Type Priority Associated Diagnoses Orde r Schedule T3 Lab Routine Acquired hypothyroidism Euthyroid sick syndrome Chronic fatigue Expected: 07/11/2025 (Approximate), Expires: 07/11/2026 T3, free Lab Routine Acquired hypothyroidism Euthyroid sick syndrome Chronic fatigue Expected: 07/11/2025 (Approximate), Expires: 07/11/2026 T3, reverse Lab Routine Acquired hypothyroidism Euthyroid sick syndrome Chronic fatigue Expected: 07/11/2025 (Approximate), Expires: 07/11/2026 T4, free Lab Routine Acquired hypothyroidism Euthyroid sick syndrome Chronic fatigue Expected: 07/11/2025 (Approximate), Expires: 07/11/2026 TSH Lab Routine Acquired hypothyroidism Euthyroid sick syndrome Chronic fatigue Expected: 07/11/2025 (Approximate), Expires: 07/11/2026 documented as of this encounter Visit Diagnoses Diagnosis Acquired hypothyroidism Unspecified hypothyroidism Euthyroid sick syndrome Chronic fatigue Other malaise and fatigue documented in this encounter Additional Health Concerns Assessment Noted Time PHQ-9 Depression Total Score: 5 12/25/19 25 10:00 AM EDT A fall risk assessment has been complete d for the patient 06/27/2024 9:39 AM EDT documented as of this encounter Care Teams Motors And Controls Tester Relationship Specialty Start Date End Date Adarsh Hernandez MD [address] [address] (Fax) PCP - Tricia MOREJON 10/03/24 Adarsh Hernandez MD [address] [address] (Fax) PCP - General Family Medicine 04/04/25 Mercedez Savage OD [address] [facility] [place] [address] Referring Physician Optometry 12/22/23 Radha Perez LPN 112 [facility] [address] [place] [address] 01/01/25 documented as of this encounter
--- OUTSIDE RECORDS SUMMARY | 2025-07-16 07:38 | XMS_ITS | Encounter Summary ---
Author Organization [facility] Address [address] [place] [address] Care Team Providers Care Bottling Attendant Name Role Phone Adarsh Hernandez MD Unavailable [phone] Adarsh Hernandez MD Primary Care Provider [phone] Mercedez Savage OD Unavailable Pattie Todd REHAB DIRECTOR OCCUPATIONAL THERAPIST Unavailable Adarsh Hernandez MD Unavailable [phone] Radha REHAB DIRECTOR OCCUPATIONAL THERAPIST Unavailable Adarsh Hernandez MD Primary Care Provider [phone] Encounter Details Date Type Department Care Team (Late st Contact Info) Description 04/25/2023 Orders Only [facility] [address] [facility] [place] [address] Adarsh Hernandez MD 112 [facility] [address] [place], [place] [id number] (Fax) Social History Tobacco Use Types Packs/Day Years Used Date Smoking Tobacco: Former Cigarettes Smokeless Tobacco: Former Comments:Stopped smoking 10 years ago PHQ-2 Answer Date Recorded Patient Health Questionnaire-2 Score 0 04/25/2023 Comments No Sex and Gender Information Value Date Recorded Sex Assigned at Not on file Legal Sex Female 7:07 PM EDT Gender Identity Not on file Sexual Orientation Not on file Occupation Industry Job Start Date Job End Date Retired Not on file Not on file Not on file COVID-19 Exposure Response Date Recorded In the last 10 days, have yo u been in contact with someone who was confirmed or suspected to have Coronavirus/COVID-19? No / Unsure 04/07/2023 4:09 PM EDT documented as of this encounter Functional Status * Over the past 2 weeks, how often have you been bothered by any of the following problems? Question Answer Date of Assessment Author Little interest or pleasure in doing things Not at all 04/25/2023 3:20 PM EDT Pattie Todd LPN Feeling down, depressed, or hopeless Not at all 04/25/2023 3:20 PM EDT Pattie Todd LPN Patient Health Questionnaire -2 Score 0 04/25/2023 3:20 PM EDT Pattie Todd LPN documented as of this encounter Plan of Treatment Upcoming Encounters Date Type Department Care Team (Late st Contact Info) Description 07/18/2025 10:00 AM EDT Office Visit [facility] [address] [place] [address] Adarsh Hernandez MD [address] [place] [address] [address] 07/23/2025 11:30 AM EDT Office Visit [facility] [address] [place] [address] [place] [address] Adarsh Hernandez MD [address] [place] [address] [place] [address] documented as of this encounter Visit Diagnoses Not on filedocumented in this encounter Care Teams Bottling Attendant Relationship Specialty Start Date End Date Adarsh Hernandez MD [address] [place] [address] PCP - Devoted 10/03/20 10/02/24 Adarsh Hernandez MD [address] [facility] 100 [place] [address] PCP - General Family Medicine 03/03/23 04/03/25 Adarsh Hernandez MD [address] [place] [address] PCP - Tricia MOREJON 10/03/24 Adarsh Hernandez MD [address] [place] [address] PCP - General Family Medicine 04/04/25 Mercedez Savage OD [address] [place] [address] Referring Physician Optometry 12/22/23 Pattie Todd LPN [address] [place] [address] Licensed Practical Nurse Pantry Chef 11/12/24 Radha Perez LPN [address] [place] [address] 01/01/25 documented as of this encounter
--- OUTSIDE RECORDS SUMMARY | 2025-07-16 07:38 | XMS_ITS | Clinical Summary ---
Author Organization [facility] Address [address] [place] [address] Care Team Providers Care Installation Coordinator Name Role Phone Mercedez Savage GRADY Unavailable Adarsh Hernandez MD Unavailable [phone] PerezRadha LICENSED THERAPIST Unavailable Adarsh Hernandez MD Primary Care Provider [phone] Allergies Active Allergy Reactions Criticality Noted Date Comments Codeine Hives,Itching 07/12/2022 Other Reaction(s): red bumps, itching Oxycodone Rash Low 07/12/2022 Other Reaction(s): Rash Pioglitazone Nausea Only 07/12/2022 Other Reaction(s): Nausea Medications Continuous Blood 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 Active albuterol (2.5 MG/3ML) 0.083% nebulizer solutionIndication s:Mild intermittent asthma without complication (HCC) Take 3 mL (2.5 mg) by nebulization every 6 (six) hours if needed for shortness of breath or wheezing 300 mL 04/12/20 24 Active Multiple Vitamins-Minerals (Multivitamin Adults 50+) tablet Take 1 tablet by mouth Daily Active cholecalciferol (Vitamin D-3) 125 MCG (5000 UT) tablet Take 5,000 Units by mouth Daily Active Continuous Glucose Sensor (FreeStyle Rory 2 Sensor) miscIndications:Ty pe 2 diabetes mellitus with other diabetic kidney complication (HCC),Diabetic peripheral neuropathy (HCC) Place 1 each on the skin every 14 (fourteen) days USE DIRECTED to test BLOOD SUGAR; change EVERY 2 (TWO) weeks 6 each 3 11/07/19 25 Active omeprazole (PriLOSEC) [address] capsuleIndications :Gastroesophageal reflux disease without esophagitis Take 1 capsule (20 mg) by mouth in the morning. Take before meals. 90 capsule 1 01/18/20 25 Active gabapentin (Neurontin) 100 MG capsuleIndications :Degeneration of intervertebral disc of lumbar region with discogenic back pain and lower extremity pain Titrate from 1 to 4 capsules three times daily as needed for pain 100 capsule 01/18/20 25 Active liothyronine (Cytomel) 5 MCG tabletIndications: Euthyroid sick syndrome Take 1.5 tablet in AM and 1.5 tablet in PM on an empty stomach. NICKY; Sigma or Greenstone brands only 270 tablet 1 01/30/20 25 Active Additional Information Patient taking differently: Take 1.5 tablet in AM and 1 tablet in PM on an empty stomach. NICKY; Sigma or Greenstone brands only, Reported on 07/04/2025 levothyroxine (Synthroid, Levoxyl) 75 MCG tabletIndications: Acquired hypothyroidism Take 0.5 tablets (37.5 mcg) by mouth in the morning and 0.5 tablets (37.5 mcg) in the evening. Take before meals. 90 tablet 1 01/30/20 25 025 Active butalbital-acetami nophen-caffeine 50-325-40 MG tabletIndications: Migraine with aura and without status migrainosus, not intractable Take 1 tablet by mouth every 4 (four) hours if needed for migraine Use no more than 4/day 10 tablet 02/13/20 25 Active DULoxetine (Cymbalta) [address] capsuleIndications :Current moderate episode of major depressive disorder without prior episode (HCC) Take 1 capsule (30 mg) by mouth Daily for 7 days Do not crush or chew. 7 capsule 05/01/20 25 Active Nebulizers (Compressor/Nebuli zer) miscIndications:Ac chenega exacerbation of chronic obstructive airways disease with asthma (HCC) Use 4 times per day and PRN SOB/wheezing 1 each 05/14/20 25 Active spironolactone (Aldactone) 25 MG tabletIndications: Bilateral leg edema,Benign essential hypertension Take 1 tablet (25 mg) by mouth Daily 30 tablet 05/24/20 25 Active Additional Information Patient not taking.Reported on 07/04/2025 clobetasol (Temovate) 0.05 % external solutionIndication s:Scalp psoriasis Apply topically in the morning and before bedtime. 50 mL 06/17/20 25 Active dapagliflozin (Farxiga) 10 MGIndications:Type 2 diabetes mellitus with other diabetic kidney complication (HCC) Take 1 tablet (10 mg) by mouth Daily 90 tablet 07/04/20 25 025 Active glipiZIDE (Glucotrol) 10 MG tabletIndications: Type 2 diabetes mellitus with other diabetic kidney complication (HCC) Take 1.5 tablet in AM and 0.5 in PM 180 tablet 07/04/20 25 026 Active metFORMIN (Glucophage) 1000 MG tabletIndications: Type 2 diabetes mellitus with other diabetic kidney complication (HCC) Take 1 tablet (1,000 mg) by mouth in the morning and 1 tablet (1,000 mg) in the evening. Take with meals. 180 tablet 07/04/20 25 025 Active atorvastatin (Lipitor) 40 MG tabletIndications: Mixed hyperlipidemia Take 1 tablet (40 mg) by mouth at bedtime 90 tablet 07/04/20 25 025 Active losartan (Cozaar) 100 MG tabletIndications: Benign essential hypertension Take 1 tablet (100 mg) by mouth 1 (one) time each day at the same time 90 tablet 07/04/20 25 025 Active metoprolol succinate XL (Toprol-XL) 25 MG 24 hr tabletIndications: Benign essential hypertension,Ather osclerosis of [place] coronary artery of [place] heart without angina pectoris Take 1 tablet (25 mg) by mouth Daily 90 tablet 07/04/20 25 025 Active DULoxetine (Cymbalta) [address] capsuleIndications :Current moderate episode of major depressive disorder without prior episode (HCC) Take 1 capsule (30 mg) by mouth Daily Do not crush or chew. 90 capsule 1 01/18/20 25 025 Discontin ued(Med list cleanup) atorvastatin (Lipitor) 40 MG tabletIndications: Mixed hyperlipidemia Take 1 tablet (40 mg) by mouth at bedtime 90 tablet 04/04/20 25 025 Discontin ued(Reord er) dapagliflozin (Farxiga) 10 MGIndications:Type 2 diabetes mellitus with other diabetic kidney complication (HCC) Take 1 tablet (10 mg) by mouth Daily 90 tablet 04/04/20 25 025 Discontin ued(Reord er) glipiZIDE (Glucotrol) 10 MG tabletIndications: Type 2 diabetes mellitus with other diabetic kidney complication (HCC) Take 1.5 tablet in AM and 0.5 in PM 180 tablet 04/04/20 25 025 Discontin ued(Reord er) losartan (Cozaar) 100 MG tabletIndications: Benign essential hypertension Take 1 tablet (100 mg) by mouth 1 (one) time each day at the same time 90 tablet 04/04/20 25 025 Discontin ued(Reord er) metFORMIN (Glucophage) 1000 MG tabletIndications: Type 2 diabetes mellitus with other diabetic kidney complication (HCC) Take 1 tablet (1,000 mg) by mouth in the morning and 1 tablet (1,000 mg) in the evening. Take with meals. 180 tablet 04/04/20 25 025 Discontin ued(Reord er) metoprolol succinate XL (Toprol-XL) 25 MG 24 hr tabletIndications: Benign essential hypertension,Ather osclerosis of [place] coronary artery of [place] heart without angina pectoris Take 1 tablet (25 mg) by mouth Daily 90 tablet 04/04/20 25 025 Discontin ued(Reord er) predniSONE (Deltasone) 10 MG tabletIndications: Acute hypoxic respiratory failure (HCC),Acute exacerbation of chronic obstructive airways disease with asthma (HCC) Every 2 day tapering dose; 5,5,4,4,3,3,2,2 ,1,1,0.5,0.5 31 tablet 05/14/20 25 025 Discontin ued(Thera py completed ) furosemide (Lasix) 20 MG tabletIndications: Acute systolic congestive heart failure (HCC) Take 1 tablet (20 mg) by mouth Daily for 7 days 7 tablet 05/15/20 25 025 Discontin ued(Thera py completed ) Active Problems Problem Noted Date Diagnosed Date Cardiovascular event risk 12/24/2024 Primary osteoarthritis of left knee 08/27/2024 Primary osteoarthritis of right knee 08/27/2024 Current moderate episode of major depressive disorder without prior episode 07/19/2024 Gastroesophageal reflux disease without esophagi tis 07/19/2024 Non morbid obesity due to excess calories 2023 Acquired hypothyroidism 03/07/2023 Allergic rhinitis due to allergen 03/07/2023 Atherosclerosis of [place] co ronary artery of [place] heart without angina pectoris 03/07/2023 Benign essential hypertension 03/07/2023 Chronic fatigue 03/07/2023 Diabetic peripheral neuropathy 03/07/2023 Euthyroid sick syndrome 03/07/2023 Lumbar degenerative disc disease 03/07/2023 Lumbar facet arthropathy 03/07/2023 Microalbuminuria 03/07/2023 Mild intermittent asthma without complication Mixed hyperlipidemia 03/07/2023 Other chronic pain 03/07/2023 Stenosis of carotid artery 03/07/2023 Synovitis and tenosynovitis 03/07/2023 Type 2 diabetes mellitus wit h hyperglycemia, without long-term current use of insulin 03/07/2023 Type 2 diabetes mellitus wit h other diabetic kidney complication 03/07/2023 White matter disease 03/07/2023 Polypharmacy 11/24/2020 Age-related nuclear cataract of both eyes 2018 [place] of macula of both eyes 03/27/2019 Myopia, bilateral 03/27/2019 Presbyopia 03/27/2019 Postmenopausal state 11/17/2018 Resolved Problems Problem Noted Date Diagnosed Date Resolved Date Atherosclerosis of aorta (I70.0) 01/05/2024 01/05/2024 Bronchitis 07/14/2023 04/13/2024 Gastritis 03/07/2023 07/19/2024 Overweight (BMI 25.0-29.9) 03/07/2023 0 04/10/2024 Incipient cataract 12/25/2015 4 Encounters Date Type Department Care Team Description 07/11/2025 Telephone [facility] [address] [id number] Leigh Buckner, JEAN-PIERRE Care Coordination 07/10/2025 Patient Outreach [facility] [address] [place] [address] Radha Perez LPN 07/04/2025 10:30 AM EDT Office Visit [facility] [address] [place] [address] [address] [place] [address] Adarsh Hernandez MD Benign essential hypertension (Primary Dx); Mixed hyperlipidemia; Type 2 diabetes mellitus with other diabetic kidney complication (HCC); Type 2 diabetes mellitus with hyperglycemia, without long-term current use of insulin (HCC); Polypharmacy; Non morbid obesity due to excess calories; Atherosclerosis of [place] coronary artery of [place] heart without angina pectoris; Precordial chest pain; Palpitation; Peripheral edema; Cardiovascular event risk 07/04/2025 Bamboo flowsheet [facility] [address] [place] [address] Adarsh Hernandez MD 07/04/2025 Travel 06/26/2025 Patient Outreach [facility] [address] [place] [address] Radha Perez LPN 06/11/2025 Refill [facility] [address] [place] [address] Adarsh Hernandez MD Scalp psoriasis (Primary Dx); Euthyroid sick syndrome 06/11/2025 Refill [facility] [address] [place] [address] Adarsh Hernandez MD Euthyroid sick syndrome 06/11/2025 Patient Outreach [facility] [address] [place] [address] Radha Perez LPN 05/30/2025 Patient Outreach [facility] [address] [place] [address] Radha Perez LPN 05/23/2025 Patient Outreach [facility] [address] [place] [address] Radha Perez LPN 05/16/2025 Patient Outreach [facility] [address] [place] [address] Radha Perez LPN 05/15/2025 Patient Outreach [facility] [address] [place] [address] Radha Perez LPN 05/15/2025 Results Follow-Up [address] [address] Adarsh Hernandez MD XR chest 2 views 05/14/2025 9:30 AM EDT [facility] [address] [place] [phone] Acute hypoxic respiratory failure (HCC); Acute exacerbation of chronic obstructive airways disease with asthma (HCC) 05/14/2025 9:30 AM EDT [facility] [address] Adarsh Hernandez MD Acute hypoxic respiratory failure (HCC) (Primary Dx); Acute exacerbation of chronic obstructive airways disease with asthma (HCC); Upper respiratory tract infection, unspecified type; Mild intermittent asthma without complication (HCC) 05/14/2025 Bamboo flowsheet [address] [address] Adasrh Hernandez MD 05/14/2025 Travel 05/13/2025 Patient Outreach [facility] [address] [place] [address] Radha Perez LPN 05/01/[address] [address] Adarsh Hernandez MD from Last 3 Months Immunizations Immunization Administration Dates Next Due Influenza, seasonal, injecta ble, preservative free 11/28/2024 Moderna Bivalent Booster Vaccination 07/15/2022 Pfizer Purple Cap SARS-CoV-2 Vaccination 021,12/28/2020,12/07/2020 Family History Medical History Relation Name Comments Brain Aneurysm Brother COPD Brother Dementia Brother Diabetes Brother Drug abuse Brother Obesity Brother Prostate cancer Brother Arthritis Daughter eldest daughter has blood clot in lower leg back injury Daughter 2, 1 - medication reaction Diabetes Father Heart disease Maternal Grandfather No Known Problems Maternal Grandmother Hypertension Mother No Known Problems Sibling Aneurysm Sister Arthritis Sister Atrial fibrillation Sister Cancer Sister Colon cancer Sister Heart disease Sister open heart josias marlo 2018 COPD Son Diabetes Son 2, 1 - overdosage Breast cancer Neg Hx Ovarian cancer Neg Hx Relation Name Status Comments Brother 2 brothers Daughter Alive 2 daughters Father Maternal Grandfather Maternal Grandmother Mother Sibling Alive Sister 4 sisters Son Alive 2 sons Social History Tobacco Use Types Packs/Day Years [...] week 06/27/2024 How often do you attend [facility] or yazdanism services? More than 4 times per year 06/27/2024 Do you belong to any clubs o r organizations such as scientology groups, unions, fraternal or athletic groups, or [...] Recorded Patient Health Questionnaire-2 Score 1 07/04/2025 [facility] - Occupational Stress [...] place to sleep or slept in a fdc (including now)? No 06/27/2023 Housing Stability Vital Sign Answer Kiet e Recorded In the last 12 months, was t here a time when you were not able to pay the mortgage or rent on time? No 06/27/2024 In the past 12 months, how m any times have you moved where you were living? 0 06/27/2024 At any time in the past 12 m [facility], were you homeless or living in a fdc (including now)? No 06/27/2024 Education Answer Date [...] file Not on file Not on file Last Filed Vital Signs Vital Sign Reading Time Taken Comments Blood Pressure 128/78 07/04/2025 10:33 AM EDT Pulse 87 07/04/2025 10:33 AM EDT Temperature 37.9 C (100.2 F) 05/31/2024 2:52 PM EDT Respiratory Rate - - Oxygen Saturation 94% 07/04/2025 10:33 AM EDT Inhaled Oxygen Concentration - - Weight 85.3 kg (188 lb) 07/04/2025 10:33 AM EDT Height 165.1 cm (5' 5 ) 07/04/2025 10:33 AM EDT Body Mass Index 31.28 07/04/2025 10:33 AM EDT Plan of Treatment Upcoming Encounters Date Type Department Care Team (Late st Contact Info) Description 07/18/2025 10:00 AM EDT Office Visit [facility] [address] [facility] [address] [place] [address] Adarsh Hernandez MD 112 [facility] [address] [place] [address] 07/23/2025 11:30 AM EDT Office Visit [facility] [place] [facility] 112 [facility] [address] [place] [address] Adarsh Hernandez MD 112 [facility] [address] [place] [address] (Fax) Health Maintenance Due Date Last Done Comments CT Colonography 1953 FIT-DNA 1953 FIT 1953 FOBT 1955 Sigmoidoscopy 1955 Mammogram 08/01/2025 08/01/2024, 07/04, 04/28/2022, Additional history exists Diabetes: Hemoglobin A1C 12/03/2025 025, 03/20/2025, 10/05/2024, Additional history exists Diabetes: Urine Protein Screening 06/05/2026 06/05/2025, 10/05/2024, 01/06/2023, Additional history exists Diabetes: Retinopathy Screening 07/16/2026 07/16/2024, 08/03/2022, 08/03/2022, Additional history exists Colonoscopy 03/22/2032 03/22/2022, 03/04, 02/17/2022 Colorectal Cancer Screening 03/22/2032 Influenza Vaccine Discontinued 11/28/2024 Pneumococcal Vaccine: 65+ Years Discontinued Procedures Procedure Name Priority Date/Time Associated Diagnosis Comments MICROALBUMIN / CREATININE URINE RATIO Routine 06/05/2025 10:16 AM EDT Type 2 diabetes mellitus with other diabetic kidney complication (HCC) LIPID PANEL Routine 06/05/2025 10:16 AM EDT Mixed hyperlipidemia HEMOGLOBIN A1C Routine 06/05/2025 10:16 AM EDT Type 2 diabetes mellitus with other diabetic kidney complication (HCC) COMPREHENSIVE METABOLIC PANEL Routine 06/05/2025 10:16 AM EDT Benign essential hypertension Type 2 diabetes mellitus with hyperglycemia, without long-term current use of insulin (HCC) Type 2 diabetes mellitus with other diabetic kidney complication (HCC) B-TYPE NATRIURETIC PEPTIDE Routine 06/05/2025 10:14 AM EDT Benign essential hypertension BASIC METABOLIC PANEL Routine 06/05/2025 10:14 AM EDT Benign essential hypertension XR CHEST 2 VIEWS Routine 05/14/2025 11:1 6 AM EDT Acute hypoxic respiratory failure (HCC) Acute exacerbation of chronic obstructive airways disease with asthma (HCC) BI MAMMOGRAM SCREENING TOMOSYNTHESIS BILATERAL 08/01/2024 3:39 PM EDT DIABETIC RETINOPATHY SCREENING - OU - BOTH EYES Routine 07/16/2024 4:02 PM EDT COLONOSCOPY Routine 03/22/2022 12:00 PM EDT Melena Cholesterolosis of gallbladder from Last 3 Months or Most Recently Relevant to Health Maintenance Results * Microalbumin / creatinine urine ratio (06/05/2025 10:16 AM EDT) CREATININE, RANDOM URINE 49 20 - 275 mg/dL [facility] ALBUMIN, URINE 0.3 See Note: mg/dL [facility] Comment: Reference Range: Reference Range Not established ALBUMIN/CREATININE RATIO, RANDOM URINE 6 <30 mg/g creat [facility] Comment: The ADA defines abnormalities in albumin excretion as follows: Albuminuria Category Result (mg/g creatinine) Normal to Mildly increased <30 Moderately increased 30-299 Severely increased > OR = 300 The ADA recommends that at least two of three specimens collected within a 3-6 month period be abnormal before considering a patient to be within a diagnostic category. Urine Urine specimen obtained by clean catch procedure / Unknown 06/05/2025 10:16 AM EDT 06/05/2025 10:17 AM EDT Narrative [facility] - 06/06/2025 12:56 PM EDT FASTING:YES FASTING: YES Resulting Agency Comment Performing Organization Information Site ID: QPT Name: [facility] Address: [address] [place] [address], [address] [place] [phone] Director: Lawrence Brooks MD Adarsh Hernandez MD LAB URINE ORDERABLES Final R esult Performing Organization Address [facility] de Phone Number [facility] * (ABNORMAL) Hemoglobin A1c (06/05/2025 10:16 AM EDT) Hemoglobin A1C 8.2(H) <5.7 % [facility] Comment: For someone without known diabetes, a hemoglobin A1c value of 6.5% or greater indicates that they may have diabetes and this should be confirmed with a follow-up test. For someone with known diabetes, a value <7% indicates that their diabetes is well controlled and a value greater than or equal to 7% indicates suboptimal control. A1c targets should be individualized based on duration of diabetes, age, comorbid conditions, and other considerations. Currently, no consensus exists regarding use of hemoglobin A1c for diagnosis of diabetes for children. Blood Venous blood specimen / Unknown 06/05/2025 10:16 AM EDT 06/05/2025 10:17 AM EDT Narrative [facility] - 06/06/2025 12:56 PM EDT FASTING:YES FASTING: YES Resulting Agency Comment Performing Organization Information Site ID: QPT Name: [facility] Address: [address] [place] [address], [address] [place] [phone] Director: Lawrence Brooks MD Adarsh Hernandez MD LAB BLOOD ORDERABLES Final R esult Performing Organization Address [facility] Co de Phone Number [facility] * (ABNORMAL) Lipid panel (06/05/2025 10:16 AM EDT) CHOLESTEROL, TOTAL 154 <200 mg/dL [facility] HDL CHOLESTEROL 45(L) > OR = 50 mg/dL [facility] TRIGLYCERIDES 233(H) <150 mg/dL [facility] Comment: If a non-fasting specimen was collected, consider repeat triglyceride testing on a fasting specimen if clinically indicated. Christa et al. J. of Clin. Lipidol. 2015;9:129-169. LDL CHOLESTEROL 77 mg/dL (calc) [facility] Comment: Reference range: <100 Desirable range <100 mg/dL for primary prevention; <70 mg/dL for patients with CHD or diabetic patients with > or = 2 CHD risk factors. LDL-C is now calculated using the Karmen calculation, which is a validated novel method providing better accuracy than the Friedewald equation in the estimation of LDL-C. Wilton IBRAHIM et al. ROB. 2013;310(19): 1995-7891 (http://education.Alphatec Spine.Just Soles/faq/TUF066) CHOL/HDLC RATIO 3.4 <5.0 (calc) [facility] NON HDL CHOLESTEROL 109 <130 mg/dL (calc) [facility] Comment: For patients with diabetes plus 1 major ASCVD risk factor, treating to a non-HDL-C goal of <100 mg/dL (LDL-C of <70 mg/dL) is considered a therapeutic option. Blood Venous blood specimen / Unknown 06/05/2025 10:16 AM EDT 06/05/2025 10:17 AM EDT Narrative [facility] - 06/06/2025 12:56 PM EDT FASTING:YES FASTING: YES Resulting Agency Comment Performing Organization Information Site ID: QPT Name: [facility] Address: [address] [place] [address], [address] [place] [phone] Director: Lawrence Brooks MD Adarsh Hernandez MD LAB BLOOD ORDERABLES Final R esult [facility] * (ABNORMAL) Comprehensive metabolic panel (06/05/2025 10:16 AM EDT) [facility] Glucose 205(H) 65 - 99 mg/dL [facility] Comment: Fasting reference interval For someone without known diabetes, a glucose value >125 mg/dL indicates that they may have diabetes and this should be confirmed with a follow-up test. BUN 18 7 - 25 mg/dL [facility] Creatinine 0.75 0.60 - 1.00 mg/dL [facility] EGFR 85 > OR = 60 mL/min/1. 73m2 [facility] BUN/CREATININE RATIO SEE NOTE: 6 - 22 (calc) [facility] Comment: Not Reported: BUN and Creatinine are within reference range. Sodium 138 135 - 146 mmol/L [facility] Potassium, Bld 4.8 3.5 - 5.3 mmol/L [facility] Chloride 101 98 - 110 mmol/L [facility] Carbon Dioxide 26 20 - 32 mmol/L [facility] Calcium 9.1 8.6 - 10.4 mg/dL [facility] PROTEIN, TOTAL 6.5 6.1 - 8.1 g/dL [facility] ALBUMIN 4.1 3.6 - 5.1 g/dL [facility] GLOBULIN 2.4 1.9 - 3.7 g/dL (calc) [facility] ALBUMIN/GLOBULIN RATIO 1.7 1.0 - 2.5 (calc) [facility] BILIRUBIN, TOTAL 0.4 0.2 - 1.2 mg/dL [facility] ALKALINE PHOSPHATASE 78 37 - 153 U/L [facility] AST 13 10 - 35 U/L [facility] ALT 17 6 - 29 U/L [facility] Blood Venous blood specimen / Unknown 06/05/2025 10:16 AM EDT 06/05/2025 10:17 AM EDT Narrative [facility] - 06/06/2025 12:56 PM EDT FASTING:YES FASTING: YES Resulting Agency Comment Performing Organization Information Site ID: QPT Name: [facility] Address: [address] [place] [address], [address] [place] [phone] Director: Lawrence Brooks MD Adarsh Hernandez MD LAB BLOOD ORDERABLES Final R esult [facility] * B-type natriuretic peptide (06/05/2025 10:14 AM EDT) B TYPE NATRIURETIC PEPTIDE (BNP) 44 <100 pg/mL [facility] Comment: BNP levels increase with age in the general population with the highest values seen in individuals greater than 75 years of age. Reference: J. Am. [place]. Cardiol. 2002; 40:976-982. Blood Venous blood specimen / Unknown 06/05/2025 10:14 AM EDT 06/05/2025 10:15 AM EDT Narrative Resulting Agency Comment Performing Organization Information Site ID: QPT Name: [facility] Address: [address] [place] [address], [address] [place] [phone] Director: Lawrence Brooks MD Adarsh Hernandez MD LAB BLOOD ORDERABLES Final R esult Performing Organization Address [facility] Co de Phone Number [facility] * (ABNORMAL) Basic metabolic panel (06/05/2025 10:14 AM EDT) Glucose 204(H) 65 - 99 mg/dL [facility] Comment: Fasting reference interval For someone without known diabetes, a glucose value >125 mg/dL indicates that they may have diabetes and this should be confirmed with a follow-up test. BUN 18 7 - 25 mg/dL [facility] Creatinine 0.78 0.60 - 1.00 mg/dL [facility] EGFR 81 > OR = 60 mL/min/1.7 3m2 [facility] BUN/CREATININE RATIO SEE NOTE: 6 - 22 (calc) [facility] Comment: Not Reported: BUN and Creatinine are within reference range. Sodium 138 135 - 146 mmol/L [facility] Potassium, Bld 4.9 3.5 - 5.3 mmol/L [facility] Chloride 101 98 - 110 mmol/L [facility] Carbon Dioxide 26 20 - 32 mmol/L [facility] Calcium 9.0 8.6 - 10.4 mg/dL [facility] Blood Venous blood specimen / Unknown 06/05/2025 10:14 AM EDT 06/05/2025 10:15 AM EDT Narrative Resulting Agency Comment Performing Organization Information Site ID: QPT Name: [facility] Address: [address] [place] [address], [address] [place] [id number] Director: Lawrence Brooks MD Adarsh Hernandez MD LAB BLOOD ORDERABLES Final R esult Performing Organization Address [facility] de Phone Number QUEST * XR chest 2 views (05/14/2025 11:16 AM EDT) Anatomical Region Laterality Modality Chest Radiographic Jovana ging 05/15/2025 9:02 AM EDT Impressions 05/15/2025 9:03 AM EDT Mild pulmonary vascular congestion. ELECTRONICALLY SIGNED BY: Howie Kilpatrick DO Narrative 05/15/2025 9:03 AM EDT EXAMINATION: XR CHEST 2 VIEWS HISTORY: Shortness of breath. Cough. TECHNIQUE: Frontal and lateral views of the chest. COMPARISON: None available FINDINGS: Cardiomediastinal silhouette is within normal limits. Mild pulmonary vascular congestion. No pneumothorax, pleural effusion, or consolidation. Degenerative changes of the spine. No acute osseous abnormality. Procedure Note Howie Kilpatrick DO - 05/15/2025 EXAMINATION: XR CHEST 2 VIEWS HISTORY: Shortness of breath. Cough. TECHNIQUE: Frontal and lateral views of the chest. COMPARISON: None available FINDINGS: Cardiomediastinal silhouette is within normal limits. Mild pulmonaryvascular congestion. No pneumothorax, pleural effusion, or consolidation.Degenerative changes of the spine. No acute osseous abnormality. IMPRESSION: Mild pulmonary vascular congestion. ELECTRONICALLY SIGNED BY: Howie Kilpatrick DO us Adarsh Hernandez MD IMG XR PROCEDURES Final Resu lt * Bilateral screening mammogram with tomosynthesis (08/01/2024 [...] Germaine Snow M.D.08/01/2024 3:44 PM Dictation Location: [facility] Transcribed By: [facility] 08/01/24 1544 Dictated By: Germaine Snow MD 08/01/24 1539 Signed By: <Electronically signed by MD Germaine Snow in OV> 08/01/24 1544 Narrative 08/01/2024 3:46 PM EDT [facility] [place] [address] Mammography Report Signed Patient: Gin Contreras MR#: [id number] : 1955 Acct:[id number] Age/Sex: 68 / F ADM Date: 08/01/24 Loc: [place] Room: Type: [facility] CLI Attending Dr: Referral Self Copies to: Adarsh [...] Procedure Note Radiology, Radiologist, MD - 08/01/2024 [facility] [place] [address] [place] [address] Mammography Report Signed Patient: Gin ContrerasMR#: [id number] : 4Acct:[id number] Age/Sex: 68 / FADM Date: 08/01/24 Loc: [place] [facility]: Referral Self Copies to: Adarsh [...] Germaine Snow M.D.08/01/2024 3:44 PM Dictation Location: [facility] Transcribed By: [facility] 08/01/24 1544 Dictated By: Germaine Snow MD 08/01/24 1539 Signed By: <Electronically signed by MD Germaine Snow in OV> 08/01/24 1544 us Generic External Data Provider IMG BI PROCEDURES Final Result * Diabetic Retinopathy Screening - OU - Both Eyes (07/16/2024 4:02 PM EDT) Anatomical Region Laterality Modality Head Other us Noms Provider Unallocated OPHTH PHOTOGRAPHY F inal Result * Colonoscopy (03/22/2022 12:00 PM EDT) Anatomical Region Laterality Modality Endoscopy 03/22/2022 12:0 0 PM EDT Narrative 03/22/2022 12:00 PM EDT PERFORMED AT [facility] LOCATION:[id number] Procedure Note CONVERSION, GENERIC - 02/16/2023 PERFORMED AT [facility] LOCATION:[id number] us Dayne Crockett DO ENDOSCOPY PROCEDURE ORDER MACY Final Result from Last 3 Months or Most Recently Relevant to Health Maintenance Insurance [facility] MEDICARE ADVANTAGE Advance Directives Documents on File Type Date Recorded 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 Expl anation Power of Top Closer 01/04/2024 9:42 AM 2016-0 8-09 Health Care Power Of Top Closer Power of Top Closer 12/22/2023 4:12 PM 06-01 POA Advance Directives and Living Will 12/22/2023 4:09 PM 2016-06-01 Living Wi Care Teams Installation Coordinator Relationship Specialty Start Date End Date Adarsh Hernandez MD [address] [place] [address] PCP - Tricia MOREJON 10/03/24 Adarsh Hernandez MD [address] [place] [address] PCP - General Family Medicine 04/04/25 Mercedez Savage OD [address] [place] [address] Referring Physician Optometry 12/22/23 Radha Perez LPN [address] [place] [address] 01/01/25
--- OUTSIDE RECORDS SUMMARY | 2025-07-16 07:39 | XMS_ITS ---
Author Organization [facility] Address [address] [place] [address] Care Team Providers Care Architectural Representative Name Role Phone Mercedez Savage OD Unavailable Adarsh Hernandez MD Unavailable [phone] Radha Perez LPN Unavailable Adarsh Hernandez MD Primary Care Provider [phone] Chronic Care Management (CCM) Status:Enrolled (Active) Start date:07/28/2020 Enrollment date:07/28/2020 Case Team Name Relationship Phone Radha Perez LPN(Responsible Staff) [phone] Continued Care and Services Coordination
--- OUTSIDE RECORDS SUMMARY | 2025-07-16 07:39 | XMS_ITS | Encounter Summary ---
Author Organization [facility] Address [address] [place] [address] Care Team Providers Care Tube Sorter Name Role Phone Adarsh Hernandez MD Unavailable [phone] Adarsh Hernandez MD Primary Care Provider [phone] Gonzalezjelena Mercedez OD Unavailable Pattie Todd SOLUTION ENGINEER Unavailable Adarsh Hernandez MD Unavailable [phone] Radha Perez SOLUTION ENGINEER Unavailable Adarsh Hernandez MD Primary Care Provider [phone] Reason for Visit * Reason Comments Med Refill Encounter Details Date Type Department Care Team (Late st Contact Info) Description 06/25/2024 Refill [facility] [address] [place] [address] Adarsh Hernandez MD [address] [facility] [address] [place] [address] (Fax) Type 2 diabetes mellitus with other diabetic kidney complication (HCC) Social History Tobacco Use Types Packs/Day Years [...] week 06/27/2024 How often do you attend [facility] or [facility] services? More than 4 times per year 06/27/2024 Do you belong to any clubs o r organizations such as oriental orthodox groups, unions, fraternal or athletic groups, or [...] Recorded Patient Health Questionnaire-2 Score 0 06/27/2024 [facility] [place] of Occupat ional Health - Occupational Stress [...] place to sleep or slept in a assisted (including now)? No 06/27/2023 Housing Stability Vital [...] in the past 12 m [facility], were you homeless or living in a assisted (including now)? No 06/27/2024 Education Answer Date [...] as of this encounter Functional Status * AUDIT-C Score Answer Date of Assessment Author 0 06/27/2024 9:41 AM EDMiguel Angel Francis LPN * Question Answer Date of Assessment Author Q1: How often do you have a drink containing alcohol? Never 06/27/2024 9:41 AM EDPattie Francis LPN Q2: How many drinks containing alcohol do you have on a typical day when you are drinking? Patient does not drink 06/27/2024 9:41 AM Pattie Ribeiro LPN Q3: How often do you have six or more drinks on one occasion? Never 06/27/2024 9:41 AM Pattie Ribeiro LPN * Over the past 2 weeks, how often have you been bothered by any of the following problems? Question Answer Date of Assessment Author Little interest or pleasure in doing things Not at all 06/27/2024 9:44 AM Pattie Ribeiro LPN Feeling down, depressed, or hopeless Not at all 06/27/2024 9:44 AM Pattie Ribeiro LPN Patient Health Questionnaire -2 Score 0 06/27/2024 9:44 AM Pattie Ribeiro LPN documented as of this encounter Plan of Treatment Upcoming Encounters Date Type Department Care Team (Late st Contact Info) Description 07/18/2025 10:00 AM EDT Office Visit [facility] Family Medicine [address] [place] [address] Adarsh Hernandez MD [address] [place] [address] 07/23/2025 11:30 AM EDT Office Visit [facility] Family Medicine [address] [place] [address] Adarsh Hernandez MD [address] [address] documented as of this encounter Visit Diagnoses Diagnosis Type 2 diabetes mellitus with other diabetic kidney complication (HCC) documented in this encounter Additional Health Concerns Assessment Noted Time PHQ-9 Depression Total Score: 5 12/22/19 24 1:00 PM EDT A fall risk assessment has been complete d for the patient 06/27/2023 11:12 AM EDT documented as of this encounter Care Teams Tube Sorter Relationship Specialty Start Date End Date Adarsh Hernandez MD [address] [place] [address] PCP - Devoted 10/03/20 10/02/24 Adarsh Hernandez MD [address] [place] [address] PCP - General Family Medicine 03/03/23 04/03/25 Adarsh Hernandez MD [address] [place] [address] PCP - Tricia MOREJON 10/03/24 Adarsh Hernandez MD [address] [place] [address] PCP - General Family Medicine 04/04/25 [place] [address] [place] [address] [place] [address] Referring Physician Optometry 12/22/23 Pattie Todd LPN [address] [place] [address] Licensed Practical Nurse Lumpia Wrapper Maker 11/12/24 Radha Perez LPN [address] [place] [address] 01/01/25 documented as of this encounter
--- OUTSIDE RECORDS SUMMARY | 2025-07-16 07:39 | XMS_ITS | Encounter Summary ---
Author Organization [facility] Address [address] [place] [address] Care Team Providers Care Apparel Stock Checker Name Role Phone Adarsh Hernandez MD Unavailable [phone] Adarsh Hernandez MD Primary Care Provider [phone] Mercedez Savage OD Unavailable Pattie Todd SKIDWAY MAN Unavailable Adarsh Hernandez MD Unavailable [phone] SKIDWAY MAN Unavailable Adarsh Hernandez MD Primary Care Provider [phone] Encounter Details Date Type Department Care Team (Late st Contact Info) Description 01/14/2024 Orders Only [facility] [place] [facility] Family Medicine [address] [facility] [address] Adarsh Hernandez MD 112 [facility] [address] [place], [place] [id number] (Fax) Social History Tobacco Use Types Packs/Day Years Used Date Smoking Tobacco: Former Cigarettes Smokeless Tobacco: Former Comments:Last smoked : >10 y ears ago Alcohol Use Standard Drinks/Week Comments Not Currently 0 (1 standard drink = 0.6 oz pur e alcohol) Humiliation, Afraid, Rape, and Kick questionnair e Answer Date Recorded Within the last year, have y ou been afraid of your partner or ex-partner? No 06/27/2023 Within the last year, have y ou been humiliated or emotionally abused in other ways by your partner or ex-partner? No Within the last year, have y ou been kicked, hit, slapped, or otherwise physically hurt by your partner or ex-partner? No 06/27/2023 Within the last year, have y ou been raped or forced to have any kind of sexual activity by your partner or ex-partner? No 06/27/2023 Social Connection and Isolation Panel Answer Date Recorded In a typical week, how many times do you talk on the phone with family, friends, or neighbors? More than three times a week 06/27/2023 How often do you get togethe r with friends or relatives? More than three times a week 06/27/2023 How often do you attend chur ch or yarsanism services? Never 06/27/2023 Do you belong to any clubs o r organizations such as protestant groups, unions, fraternal or athletic groups, or school groups? Yes 06/27/2023 How often do you attend meet ings of the clubs or organizations you belong to? More than 4 times per year 06/27/2023 Are you , , di vorced, , never , or living with a partner? 06/27/2023 AUDIT-C Answer Date Recorded Q1: How often do you have a drink containing alcohol? Never 06/27/2023 Q2: How many drinks containi ng alcohol do you have on a typical day when you are drinking? Patient does not drink Q3: How often do you have si x or more drinks on one occasion? Never 06/27/2023 Overall Financial Resource Strain (CARDIA) Answe r Date Recorded How hard is it for you to pa y for the very basics like food, housing, medical care, and heating? Not hard at all 06/27/2023 PHQ-2 Answer Date Recorded Patient Health Questionnaire-2 Score 1 12/22/2023 [facility] of Occupat ional Health - Occupational Stress Questionnaire Answer Date Recorded Do you feel stress - tense, restless, nervous, or anxious, or unable to sleep at night because your mind is troubled all the time - these days? To some extent 06/27/2023 Exercise Vital Sign Answer Date Recorde d On average, how many days pe r week do you engage in moderate to strenuous exercise (like a brisk walk)? 3 days 06/27/2023 On average, how many minutes do you engage in exercise at this level? 30 min 06/27/2023 Hunger Vital Sign Answer Date Recorded Within the past 12 months, y ou worried that your food would run out before you got the money to buy more. Never true 06/27/20 23 Within the past 12 months, t he food you bought just didn't last and you didn't have money to get more. Never true 06/27/2023 PRAPARE - Transportation Answer Date Re corded In the past 12 months, has l ack of transportation kept you from medical appointments or from getting medications? No 06/04 In the past 12 months, has l ack of transportation kept you from meetings, work, or from getting things needed for daily living? No 06/27/2023 Housing Stability Vital Sign Answer [...] in a jail (including now)? No 06/27/2023 Education Answer Date Recorded What is the [...] Visit [facility] [address] [facility] [address] [place] [address] Adarsh Hernandez MD 112 [facility] 100 [place] [address] 07/23/2025 11:30 AM EDT Office Visit [facility] [address] [facility] [place] [address] Adarsh Hernandez MD 112 [facility] [place] [address] documented as of this encounter Visit Diagnoses Not on filedocumented in this encounter Additional Health Concerns Assessment Noted Time PHQ-9 Depression Total Score: 5 12/22/19 24 1:00 PM EDT A fall risk assessment has been complete d for the patient 06/27/2023 11:12 AM EDT documented as of this encounter Care Teams Apparel Stock Checker Relationship Specialty Start Date End Date Adarsh Hernandez MD 112 [facility] [place] [address] PCP - Devoted 10/03/20 10/02/24 Adarsh Hernandez MD [address] [address] [place] [address] (Fax) PCP - General Family Medicine 03/03/23 04/03/25 Adarsh Hernandez MD 112 [address] [place] [address] (Fax) PCP - Tricia MOREJON 10/03/24 Adarsh Hernandez MD [address] [address] (Fax) PCP - General Family Medicine 04/04/25 Mercedez Savage OD [address] [place] [address] Referring Physician Optometry 12/22/23 Pattie Todd, SKIDWAY MAN [address] [place] [address] Licensed Practical Nurse Numerical Control Drill Press Operator 11/12/24 Radha Perez LPN [address] [id number] 01/01/25 documented as of this encounter
--- OUTSIDE RECORDS SUMMARY | 2025-07-16 07:39 | XMS_ITS | Clinical Summary ---
Author Organization [employer] [facility] Address [id number] [address] [place] [address] Care Team Providers Care Service Delivery Supervisor Name Role Phone Adarsh Hernandez MD Primary Care Provider Social History Tobacco Use Types Packs/Day Years Used Date Smoking Tobacco: Never Assessed Childcare Answer Date Recorded Childcare Unknown 03/12/2019 Employment Answer Date Recorded Employment Unknown 03/12/2019 Purpose - Life Answer Date Recorded Purpose and direction in life Unknown Comments Unknown Sex and Gender Information Value Date Recorded Sex Assigned at Not on file Legal Sex Female 12:07 PM EDT Gender Identity Not on file Sexual Orientation Not on file Plan of Treatment Health Maintenance Due Date Last Done Comments Depression Screening 1965 Tobacco Screening 1965 Adult BMI Screening 1971 DTaP,Tdap and Td Vaccines (1 - Tdap) 1972 Zoster (Shingles) Vaccine (1 of 2) 2003 Fall Risk Screening 2018 Influenza Vaccine 06/03/2025 Medical Devices Not on file Care Teams Service Delivery Supervisor Relationship Specialty Start Date End Date Adarsh Hernandez MD PCP - General 04/19/18
--- OUTSIDE RECORDS SUMMARY | 2025-07-16 07:39 | XMS_ITS | Clinical Summary ---
Author Organization [facility] Address [address] [place] [address], [address] [place] [address] Care Team Providers Care Campus Administrative Assistant Name Role Phone Unavailable Primary Care Provider Unavailabl e Social History Tobacco Use Types Packs/Day Years Used Date Smoking Tobacco: Never Assessed Comments Unknown Sex and Gender Information Value Date Recorded Sex Assigned at Not on file Legal Sex Female 6:23 PM EST Gender Identity Not on file Sexual Orientation Not on file Plan of Treatment Not on file
--- NOTE | 2025-07-16 08:00 | CA_ITS ---
Patient Name: YEMI HERRON MR#: [id number] : 1955 Exam Date: 07/16/2025 Ordering Doctor: DR BRENNAN MARTINEZ . ECHOCARDIOGRAM REPORT PROCEDURE: CA ECHO DOPPLER COMPLETE INDICATIONS: Chest pain, palpitations, edema, hypertension COMPARISON: None. DESCRIPTION: COMPLETE ECHOCARDIOGRAM Real-time transthoracic echocardiography with 2D, M-mode, spectral and color flow Doppler performed. QUALITY: Technical quality was good. LEFT VENTRICLE: Normal chamber size. Borderline left ventricular hypertrophy. Global left ventricular systolic function is normal. LV EF: Estimated left ventricular ejection fraction is 60%. DIASTOLIC: Grade I diastolic dysfunction. ATRIAL SEPTUM: LEFT ATRIUM: Normal chamber size. RIGHT ATRIUM: Normal chamber size. RIGHT VENTRICLE: Normal chamber size. Normal right ventricular systolic function. TRICUSPID VALVE: Normal mobility and thickness. No stenosis with mild to moderate regurgitation. Moderate pulmonary hypertension. RVSP 58 mmHg. MITRAL VALVE: Normal mobility and thickness. No evidence of mitral valve stenosis. Mild mitral annular calcification. Trivial mitral regurgitation. AORTIC VALVE: Normal trileaflet appearance. Mildly calcified aortic valve. Normal leaflet mobility. No evidence of aortic valve stenosis. No aortic regurgitation. AORTIC ROOT: Normal diameter and appearance, measuring 2.9 cm the ascending aorta is normal in size measuring 3.2 cm. PULMONIC VALVE: Normal thickness and mobility. No stenosis. No regurgitation. PERICARDIUM: Trivial pericardial effusion. IVC: Collapses with inspiration. Normal size PLEURA: CONCLUSION: 1. Normal left ventricular size and systolic function. LVEF is estimated at 60%. 2. Normal right ventricular size and systolic function. 3. Grade 1 diastolic dysfunction. 4. Mild to moderate tricuspid regurgitation. 5. Moderately elevated right-sided pressures. RVSP is 58 mmHg. 6. Trivial pericardial effusion. Adult Echocardiography Procedure Report Left Ventricle LVEDD (3.7 - 5.6 cm): 4.07 cm LVESD (2.2 - 4.0 cm): 3.07 cm LVIVS thickness (0.6 - 1.2 cm): 0.96 cm LVPW thickness (0.5 - 1.0 cm): 0.83 cm e': 0.06 m/s E - e': 15.65 LVOT Max Gradient: 2.57 mm[Hg] LVOT Area (cm2): 0.80 m/s Peak Velocity (LVOT): 0.80 m/s Mean Velocity (LVOT): 0.52 m/s LVOT Diameter 2.25 cm Left Ventricular Ejection Fraction: 60 % Left Atrium LA Volume Index (2D A2C): 29.02 ml/m2 Left Atrium Systolic Dimension: 4.36 cm Mitral Valve MV E to A Ratio: 0.77 Mitral Valve A-Wave Peak Velocity: 1.12 m/s Mitral Valve E-Wave Peak Velocity: 0.86 m/s Right Ventricle RV Internal Diastolic Dimension: 3.03 cm Aorta AO Root Diam: 2.90 cm Ascending Ao Diam: 3.22 cm Aortic Valve AoV Area (Peak Darius): 3.28 cm2, 3.28 cm2 AoV Area (VTI): 3.54 cm2, 3.54 cm2 Peak Velocity(Antegrade Flow): 0.97 m/s Peak Gradient(Antegrade Flow): 3.74 mm[Hg] Mean Velocity(Antegrade Flow): 0.62 m/s Mean Gradient(Antegrade Flow): 1.74 mm[Hg] Velocity Time Integral: 21.42 cm Tricuspid Valve Peak Velocity (Regurgitant Flow): 3.71 m/s, 3.78 m/s, 3.72 m/s Pulmonic Valve Peak Velocity: 0.63 m/s Peak Gradient: 1.65 mm[Hg], 1.55 mm[Hg] Right Atrium Right Atrium Systolic Pressure: 27.20 ml, 27.20 ml Dictated by: Noble Le M.D. on 07/16/2025 at 19:13 Approved by: Noble Le M.D. on 07/16/2025 at 19:24
== END 2025-07-16 07:33 | disposition home or self-care (01) ==
LOC: CARD 07:36
PROVIDERS: PCP Family Medicine; Visit Provider Family Medicine
DX: I25.10 Atherosclerotic heart disease of native coronary artery without angina pectoris (principal); I10 Essential (primary) hypertension; R07.2 Precordial pain; R00.2 Palpitations; R60.0 Localized edema
CPT/HCPCS: 93242; 93306